=== PATIENT | male | born 1935 | race Caucasian/White ===

== ENCOUNTER 2017-01-03 17:09 | Inpatient (IN) | payer MEDICARE, BC ==
[~2017-01-03] VITALS: Ht 167.6 cm; Wt 70.0 kg
[2017-01-03 17:13] VITALS: BP 94/65; PULSE 92; RESP 20; TEMP 98.4; O2SAT 96
--- NOTE | 2017-01-03 17:29 | PD ---
HPI Chief Complaint: GI Complaint Time Seen by Provider: 17:24 Travel History International Travel<30 days: No Contact w/Intl Traveler<30days: No Traveled to known affect area: No History of Present Illness HPI 81-year-old male with history of heart valve replacement currently on Plavix, hypertension, presents to the ER today because he has been having nausea and vomiting since last night, started vomiting up coffee grounds today, vomited about 5 times this morning. He denies any diarrhea, black stools, fevers, or any other symptoms. He denies any previous history of gastrointestinal bleeding. Modifying Factors: None Associated Signs & Symptoms: Vomiting coffee grounds Risk Factors: Plavix PFSH Past Medical History Hx Anticoagulant Therapy: Yes (plavix) Cardiovascular Problems: Yes Respiratory: Yes Past Surgical History Cardiac Surgery: Yes (CABG X2, VALVE REPLACEMENT) Social History Alcohol Use: No Tobacco Use: No Substance Use: No Allergies-Medications (Allergen,Severity, Reaction): Coded Allergies: aspirin (Verified Adverse Reaction, Unknown, GI UPSET, 01/03/17) Review of Systems Except as stated in HPI: all other systems reviewed are Neg Physical Exam Narrative GENERAL: Well-developed pleasant elderly white male patient currently in moderate distress at awake and oriented 3. SKIN: Focused skin assessment warm/dry. HEAD: Atraumatic. Normocephalic. EYES: Pupils equal and round. No scleral icterus. No injection or drainage. ENT: No nasal bleeding or discharge. Mucous membranes pink and moist. NECK: Trachea midline. No JVD. CARDIOVASCULAR: Regular rate and rhythm. No murmur appreciated. RESPIRATORY: No accessory muscle use. Clear to auscultation. Breath sounds equal bilaterally. GASTROINTESTINAL: Abdomen soft, mild periumbilical tenderness without guarding or rebound, nondistended. Hepatic and splenic margins not palpable. MUSCULOSKELETAL: No obvious deformities. No clubbing. No cyanosis. No edema. NEUROLOGICAL: Awake and alert. No obvious cranial nerve deficits. Motor grossly within normal limits. Normal speech. PSYCHIATRIC: Appropriate mood and affect; insight and judgment normal. Data Data Last Documented VS Vital Signs Date Time Temp Pulse Resp B/P (MAP) Pulse Ox O2 Delivery O2 Flow Rate FiO2 01/03/17 18:02 86 16 116/56 (76) 97 Nasal Cannula 2.00 01/03/17 17:13 98.4 Orders Orders Complete Blood Count With Diff (01/03/17 17:24) Comprehensive Metabolic Panel (01/03/17 17:24) Lipase (01/03/17 17:24) Prothrombin Time / Inr (Pt) (01/03/17 17:24) Act Partial Throm Time (Ptt) (01/03/17 17:24) Type And Screen (01/03/17 17:24) Ecg Monitoring (01/03/17 17:24) Iv Access Insert/Monitor (01/03/17 17:24) Oximetry (01/03/17 17:24) Sodium Chlorid 0.9% 500 Ml Inj (Ns 500 M (01/03/17 17:45) Pantoprazole Inj (Protonix Inj) (01/03/17 17:45) Ondansetron Inj (Zofran Inj) (01/03/17 17:45) Ondansetron Inj (Zofran Inj) (01/03/17 17:34) Abdomen, Flat & Upright (01/03/17 17:53) Ng Gastric Tube Insert/Monitor (01/03/17 17:53) Electrocardiogram (01/03/17 17:36) Labs Laboratory Tests Test 01/03/17 17:30 White Blood Count 10.5 TH/MM3 Red Blood Count 4.50 MIL/MM3 Hemoglobin 13.0 GM/DL Hematocrit 37.9 % Mean Corpuscular Volume 84.2 FL Mean Corpuscular Hemoglobin 28.9 PG Mean Corpuscular Hemoglobin Concent 34.3 % Red Cell Distribution Width 15.4 % Platelet Count 189 TH/MM3 Mean Platelet Volume 8.0 FL Neutrophils (%) (Auto) 46.4 % Lymphocytes (%) (Auto) 31.6 % Monocytes (%) (Auto) 10.1 % Eosinophils (%) (Auto) 11.7 % Basophils (%) (Auto) 0.2 % Neutrophils # (Auto) 4.8 TH/MM3 Lymphocytes # (Auto) 3.3 TH/MM3 Monocytes # (Auto) 1.1 TH/MM3 Eosinophils # (Auto) 1.2 TH/MM3 Basophils # (Auto) 0.0 TH/MM3 CBC Comment DIFF FINAL Differential Comment Prothrombin Time 11.4 SEC Prothromb Time International Ratio 1.0 RATIO Activated Partial Thromboplast Time 28.5 SEC Blood Urea Nitrogen 64 MG/DL Creatinine 1.89 MG/DL Random Glucose 100 MG/DL Total Protein 6.6 GM/DL Albumin 3.6 GM/DL Calcium Level 8.4 MG/DL Alkaline Phosphatase 86 U/L Aspartate Amino Transf (AST/SGOT) 17 U/L Alanine Aminotransferase (ALT/SGPT) 20 U/L Total Bilirubin 1.0 MG/DL Sodium Level 138 MEQ/L Potassium Level 4.1 MEQ/L Chloride Level 100 MEQ/L Carbon Dioxide Level 30.8 MEQ/L Anion Gap 7 MEQ/L Estimat Glomerular Filtration Rate 34 ML/MIN Lipase 160 U/L MDM Medical Decision Making Medical Screen Exam Complete: Yes Emergency Medical Condition: Yes Medical Record Reviewed: Yes Interpretation(s) Laboratory Tests Test 01/03/17 17:30 Hematocrit 37.9 % (39.0-51.0) Monocytes (%) (Auto) 10.1 % (0.0-8.0) Eosinophils (%) (Auto) 11.7 % (0.0-4.0) Monocytes # (Auto) 1.1 TH/MM3 (0-0.9) Eosinophils # (Auto) 1.2 TH/MM3 (0-0.4) Blood Urea Nitrogen 64 MG/DL (7-18) Creatinine 1.89 MG/DL (0.60-1.30) Calcium Level 8.4 MG/DL (8.5-10.1) Estimat Glomerular Filtration Rate 34 ML/MIN (>89) Differential Diagnosis Coffee ground emesis: GI bleed versus gastritis versus evaluation for significant anemia Narrative Course Patient is given Protonix in the ER and Zofran. However, he continued to vomit and NG tube was placed with some improvement symptoms. Lab work shows elevated BUN/creatinine creatinine, likely underlying dehydration. His emesis was evaluated and shows that it is Hemoccult positive. H&H is stable. At this point, my plan would be to admit the patient for further treatment. Case was discussed with family practice resident service for admission. Diagnosis Primary Impression: GI bleed Admitting Information Admitting Physician Requests: Admit Jaylan Miranda MD Jan 03, 2017 17:29
[2017-01-03 17:31] VITALS: O2SAT 96
[2017-01-03] MEDS ORDERED: ONDANSETRON HCL 4 MG/2 ML VIAL ONE (17:34)
[2017-01-03] MEDS ORDERED: SODIUM CHLORID 0.9% 500 ML INJ 500 ML IV ONE ×2 (17:45→19:30)
[2017-01-03] MEDS ORDERED: ONDANSETRON HCL 4 MG/2 ML VIAL IV PUSH ONE (17:45)
[2017-01-03] MEDS ORDERED: PANTOPRAZOLE SODIUM 40 MG VIAL IV PUSH ONE (17:45)
[2017-01-03 17:49] LABS: AUTOMATED NEUTROPHIL # 4.8 TH/MM3 (1.8-7.7); BASOPHIL % 0.2 % (0.0-2.0); EOSINOPHIL # 1.2 TH/MM3 (0-0.4); EOSINOPHIL % 11.7 % (0.0-4.0); HEMATOCRIT 37.9 % (39.0-51.0); HEMO FLAGS DIFF FINAL; LYMPH % 31.6 % (9.0-44.0); LYMPHOCYTE # 3.3 TH/MM3 (1.0-4.8); MEAN CELL VOLUME 84.2 FL (80.0-100.0); MEAN CORPUSCULAR HEMOGLOBIN 28.9 PG (27.0-34.0); MEAN CORPUSCULAR HGB CONC 34.3 % (32.0-36.0); MONO % 10.1 % (0.0-8.0); NEUT % 46.4 % (16.0-70.0); PLATELET COUNT 189 TH/MM3 (150-450); RED CELL DISTRIBUTION WIDTH 15.4 % (11.6-17.2); WHITE BLOOD COUNT 10.5 TH/MM3 (4.0-11.0)
[2017-01-03 18:01] LABS: APTT (PATIENT) 28.5 SEC (24.3-30.1); PROTHROMBIN TIME - PATIENT 11.4 SEC (9.8-11.6)
[2017-01-03 18:02] VITALS: BP 116/56; PULSE 86; RESP 16; O2SAT 97
[2017-01-03 18:04] LABS: ANION GAP 7 MEQ/L (5-15); AST (GOT) 17 U/L (15-37); BICARBONATE 30.8 MEQ/L (21.0-32.0); BLOOD UREA NITROGEN 64 MG/DL (7-18); CHLORIDE 100 MEQ/L (98-107); GLOMERULAR FILTRATION RATE 34 ML/MIN (>89); POTASSIUM 4.1 MEQ/L (3.5-5.1); SODIUM (NA) 138 MEQ/L (136-145)
[2017-01-03 18:05] LABS: ALT (GPT) 20 U/L (12-78)
[2017-01-03 18:07] LABS: ALKALINE PHOSPHATASE 86 U/L (45-117)
[2017-01-03] MEDS ORDERED: METO50TA PO (18:58)
[2017-01-03] MEDS ORDERED: TAMS0.4C4 PO (18:58)
[2017-01-03] MEDS ORDERED: TRIA37.5 PO (18:58)
[2017-01-03] MEDS ORDERED: ALBU0.08 NEB (18:58)
[2017-01-03] MEDS ORDERED: PANT40TA3 PO (18:58)
[2017-01-03] MEDS ORDERED: PROS5TAB PO (18:58)
[2017-01-03] MEDS ORDERED: ALBUAER3 INH (18:58)
[2017-01-03] MEDS ORDERED: CLOP75TA PO (18:58)
[2017-01-03] MEDS ORDERED: ATOR40TA16 PO (18:58)
[2017-01-03] MEDS ORDERED: GARL1000 PO (18:58)
[2017-01-03] MEDS ORDERED: MULT-267 PO (18:58)
[2017-01-03] MEDS ORDERED: SODIUM CHLORIDE 0.9% FLUSH 10 ML FLUSH IV FLUSH PRN (19:00)
--- NOTE | 2017-01-03 19:10 | RADRPT ---
EXAM DATE/TIME: 01/03/2017 18:33 [facility] COMPARISON: No previous studies available for comparison. INDICATIONS : Hematemesis. MEDICAL HISTORY : None. SURGICAL HISTORY : None. ENCOUNTER: Initial ACUITY: 3 days PAIN SCORE: 0/10 LOCATION: Bilateral abdomen. FINDINGS: Moderate stool in the right side of the colon. No small bowel or gastric distention. No evidence of f ree air. There is a nasogastric tube with tip in the distal stomach. There is left base infiltrate. CONCLUSION: 1. Nonobstructive bowel gas pattern. 2. Moderate stool in the right side of the colon. 3. Nasogastric tube tip is in the distal stomach. 4. Consolidation of the visualized left lung base. Derek Carrasco MD on January 03, 2017 at 19:08 Board Certified Radiologist. This report was verified electronically.
[2017-01-03 19:23] VITALS: BP 105/59; PULSE 92; RESP 20; O2SAT 94
[2017-01-03] MEDS: SODIUM CHLOR 0.9% 1000 ML INJ 1,000 ML IV SCH (19:27)
[2017-01-03] MEDS ORDERED: SENNOSIDES 8.6 MG TAB PO PRN (19:45)
[2017-01-03] MEDS ORDERED: NALOXONE HCL 0.4 MG/ML AMP IV PUSH PRN (19:45)
[2017-01-03] MEDS ORDERED: LACTULOSE SYRUP 20 GM/30 ML CUP PO PRN (19:45)
[2017-01-03] MEDS ORDERED: BISACODYL 10 MG SUPP RECTAL PRN (19:45)
[2017-01-03] MEDS ORDERED: MAGNESIUM HYDROXIDE SUSP 30 ML CUP PO PRN (19:45)
[2017-01-03 19:54] VITALS: O2SAT 94
[2017-01-03 20:19] LABS: HEMATOCRIT 31.1 % (39.0-51.0); REVIEW FLAG FINAL
[2017-01-03] MEDS ORDERED: PANTOPRAZOLE SODIUM 40 MG VIAL IV PUSH SCH (21:00)
[2017-01-03] MEDS: SODIUM CHLORIDE 0.9% FLUSH 10 ML FLUSH IV FLUSH SCH (21:00)
[2017-01-03] MEDS ORDERED: SODIUM CHLORID 0.9% 500 ML INJ 500 ML IV STA (21:10)
[2017-01-03] MEDS: PANTOPRAZOLE INJ 80 MG in SODIUM CHLORIDE 0.9% INJ 100 ML IV SCH (21:51)
--- NOTE | 2017-01-03 22:33 | HHI.HP ---
HPI Service Family Medicine Primary Care Physician Unknown Admission Diagnosis GI bleed Diagnoses: International Travel<30 Days: No Contact w/Intl Traveler<30days: No Known Affected Area: No History of Present Illness 81 year old male with past history of HTN, GERD, HLD, COPD who presented to the ED for vomiting blood. Patient states he began vomiting yesterday night. There was no blood in his vomit at that time. Over the past day he has vomited "30-40 times." It became a dark brown/red today. Each vomitus was a "small amount". This has never occurred before. He came into the ED at the behest of his granddaughter, who is a nurse. She described the vomitus as "coffee ground emesis". No recent blood from his nose. No lightheadedness, dizziness, dry mouth , headache, palpitations, nausea, abdominal pain. Notes chronic constipation, last bowel movement Sunday after a laxative, did not examine for color. No recent change in urine frequency, volume, color. Patient states he's had no other recent bleeds. Patient states he had a colonoscopy 8-9 months ago which was normal. (Sekou Magaña MD R1) Review of Systems Constitutional: DENIES: Diaphoretic episodes, Fatigue, Fever, Chills, Dizziness Endocrine: DENIES: Polydipsia, Polyuria Eyes: DENIES: Blurred vision, Diplopia, Eye pain, Vision loss, Double Vision Ears, nose, mouth, throat: DENIES: Tinnitus, Hearing loss, Running Nose, Epistaxis Respiratory: COMPLAINS OF: Hemoptysis, DENIES: Apneas, Cough, Snoring, Wheezing , Sputum production, Shortness of breath Cardiovascular: DENIES: Chest pain, Palpitations, Syncope, Dyspnea on Exertion Gastrointestinal: COMPLAINS OF: Constipation, Vomiting, DENIES: Abdominal pain , Nausea Genitourinary: COMPLAINS OF: Nocturia, DENIES: Dysuria Musculoskeletal: COMPLAINS OF: Joint pain ("normal for my age"), Muscle aches ( "normal for my age"), DENIES: Back pain Integumentary: DENIES: Pruritus, Rash Hematologic/lymphatic: COMPLAINS OF: Bruising, DENIES: Lymphadenopathy Immunologic/allergic: DENIES: Eczema, Urticaria Neurologic: DENIES: Abnormal gait, Headache, Localized weakness, Paresthesias Psychiatric: DENIES: Anxiety, Confusion (Sekou Magaña MD R1) Past Family Social History Past Medical History Hypertension GERD Hyperlipidemia COPD Past Surgical History Two-vessel CABG 1998 2 repaired valves 1998 Right hip replacement 2005 Right inguinal hernia repair "30-40 years ago" Left ankle fracture surgery (Sekou Magaña MD R1) Allergies: Coded Allergies: aspirin (Verified Adverse Reaction, Unknown, GI UPSET, 01/03/17) Family History Mother at 85 possible cancer Father at 78 heart attack Social History Alcohol: Doesn't drink Smoking: Stopped smoking 40 years ago, a pack a day ago for 40 years Drug: None (Sekou Magaña MD R1) Physical Exam Vital Signs Vital Signs Date Time Temp Pulse Resp B/P (MAP) Pulse Ox O2 Delivery O2 Flow Rate FiO2 01/03/17 19:54 94 Nasal Cannula 1.00 01/03/17 19:23 92 20 105/59 (74) 94 Nasal Cannula 2.00 01/03/17 18:02 86 16 116/56 (76) 97 Nasal Cannula 2.00 01/03/17 17:31 96 Nasal Cannula 2.00 01/03/17 17:13 98.4 92 20 94/65 (75) 96 Room Air Physical Exam GENERAL: This is a well-nourished, well-developed patient, in no apparent distress. SKIN: No rashes. Cool and dry. Ecchymoses on arms and legs. Bandaged abrasion on right leg. HEAD: Atraumatic. Normocephalic. No temporal or scalp tenderness. EYES: Pupils equal round and reactive. Extraocular motions intact. No scleral icterus. No injection or drainage. ENT: Nose with NG tube draining dark red fluid. Approximately 250 mL of dark red fluid collected at time of interview. Throat without erythema, tonsillar hypertrophy or exudate. Uvula midline. Airway patent. NECK: Trachea midline. No JVD or lymphadenopathy. Supple, nontender, no meningeal signs. CARDIOVASCULAR: Regular rate and rhythm without murmurs, gallops, or rubs. RESPIRATORY: Bilateral wheezing. Breath sounds equal bilaterally. No rales, or rhonchi. GASTROINTESTINAL: Abdomen soft, non-tender, nondistended. No hepato-splenomegaly , or palpable masses. No guarding. MUSCULOSKELETAL: Extremities without clubbing, cyanosis, or edema. No joint tenderness, effusion, or edema noted. No calf tenderness. NEUROLOGICAL: Awake and alert. Cranial nerves II through XII intact. Motor and sensory grossly within normal limits. Five out of 5 muscle strength in all muscle groups. Normal speech. Laboratory Laboratory Tests Test 01/03/17 17:30 01/03/17 19:50 White Blood Count 10.5 Red Blood Count 4.50 Hemoglobin 13.0 10.3 Hematocrit 37.9 31.1 Mean Corpuscular Volume 84.2 Mean Corpuscular Hemoglobin 28.9 Mean Corpuscular Hemoglobin Concent 34.3 Red Cell Distribution Width 15.4 Platelet Count 189 Mean Platelet Volume 8.0 Neutrophils (%) (Auto) 46.4 Lymphocytes (%) (Auto) 31.6 Monocytes (%) (Auto) 10.1 Eosinophils (%) (Auto) 11.7 Basophils (%) (Auto) 0.2 Neutrophils # (Auto) 4.8 Lymphocytes # (Auto) 3.3 Monocytes # (Auto) 1.1 Eosinophils # (Auto) 1.2 Basophils # (Auto) 0.0 CBC Comment DIFF FINAL Differential Comment Prothrombin Time 11.4 Prothromb Time International Ratio 1.0 Activated Partial Thromboplast Time 28.5 Blood Urea Nitrogen 64 Creatinine 1.89 Random Glucose 100 Total Protein 6.6 Albumin 3.6 Calcium Level 8.4 Alkaline Phosphatase 86 Aspartate Amino Transf (AST/SGOT) 17 Alanine Aminotransferase (ALT/SGPT) 20 Total Bilirubin 1.0 Sodium Level 138 Potassium Level 4.1 Chloride Level 100 Carbon Dioxide Level 30.8 Anion Gap 7 Estimat Glomerular Filtration Rate 34 Lipase 160 (Skeou Magaña MD R1) Result Diagram: 01/03/17194901/03/17 2701 Caprini VTE Risk Assessment Caprini VTE Risk Assessment: Mod/High Risk (score >= 2) VTE Pharm Contraindication: Active bleeding Caprini Risk Assessment Model Point Value = 1 Point Value = 2 Point Value = 3 Point Value = 5 Age 41-60 Minor surgery BMI > 25 kg/m2 Swollen legs Varicose veins or History of unexplained or recurrent spontaneous Oral contraceptives or hormone replacement Sepsis (< 1 month) Serious lung disease, including pneumonia (< 1 month) Abnormal pulmonary function Acute myocardial infarction Congestive heart failure (< 1 month) History of inflammatory bowel disease Medical patient at bed rest Age 61-74 Arthroscopic surgery Major open surgery (> 45 min) Laparoscopic surgery (> 45 min) Malignancy Confined to bed (> 72 hours) Immobilizing plaster cast Central venous access Age >= 75 History of VTE Family history of VTE Factor V Leiden Prothrombin [id number] Lupus anticoagulant Anticardiolipin antibodies Elevated serum homocysteine Heparin-induced thrombocytopenia Other congenital or acquired thrombophilia Stroke (< 1 month) Elective arthroplasty Hip, pelvis, or leg fracture Acute spinal cord injury (< 1 month) Prophylaxis Regimen Total Risk Factor Score Risk Level Prophylaxis Regimen 0-1 Low Early ambulation 2 Moderate Order ONE of the following: *Sequential Compression Device (SCD) *Heparin 5000 units SQ BID 3-4 Higher Order ONE of the following medications: *Heparin 5000 units SQ TID *Enoxaparin/Lovenox 40 mg SQ daily (WT < 150 kg, CrCl > 30 mL/min) *Enoxaparin/Lovenox 30 mg SQ daily (WT < 150 kg, CrCl > 10-29 mL/min) *Enoxaparin/Lovenox 30 mg SQ BID (WT < 150 kg, CrCl > 30 mL/min) AND/OR *Sequential Compression Device (SCD) 5 or more Highest Order ONE of the following medications: *Heparin 5000 units SQ TID (Preferred with Epidurals) *Enoxaparin/Lovenox 40 mg SQ daily (WT < 150 kg, CrCl > 30 mL/min) *Enoxaparin/Lovenox 30 mg SQ daily (WT < 150 kg, CrCl > 10-29 mL/min) *Enoxaparin/Lovenox 30 mg SQ BID (WT < 150 kg, CrCl > 30 mL/min) AND *Sequential Compression Device (SCD) (Sekou Magaña MD R1) Assessment and Plan Assessment and Plan 81-year-old male with past history of hypertension, hyperlipidemia, GERD who has an active upper GI bleed on nasogastric suction. Asymptomatic. Hemoglobin 13.0 on admission, 10.3 two hours and 20 minutes later. Negative rectal Hemoccult performed at admission. (Sekou Magaña MD R1) Attending Attestation The patient has been seen and examined. The chart and all resident notes have been reviewed. I agree that inpatient care is appropriate and that a two midnight stay is expected for the reasons documented in the resident history and physical. I have discussed this with the resident and certify the resident s order for inpatient admission. (Myriam Martinez MD) Problem List: (1) GI bleed ICD Codes: K92.2 - Gastrointestinal hemorrhage, unspecified Status: Acute Plan: Current active GI bleed with coffee-ground fluid on nasogastric suction. Currently asymptomatic. Hemoglobin 13.0 in ED. negative Hemoccult performed at admission. * Repeat hemoglobin 10.3 approximate 2 hours after first * F/U H/H every 4 hours * Monitor vital signs * Monitor for signs and symptoms of anemia * Admit to [facility] * 500 mL fluid bolus 2 given * GI consulted, will perform endoscopy in the morning * Protonix drip * We'll transfuse as needed (2) Hypertension ICD Codes: I10 - Essential (primary) hypertension Plan: History of hypertension * Continue home metoprolol 50 mg daily when able to tolerate by mouth * Monitor vital signs * Currently normal to hypotensive (3) Hyperlipidemia ICD Codes: E78.5 - Hyperlipidemia, unspecified Plan: History of hyperlipidemia * Resume home atorvastatin 40 mg daily when able to tolerate by mouth (4) COPD (chronic obstructive pulmonary disease) ICD Codes: J44.9 - Chronic obstructive pulmonary disease, unspecified Plan: History of COPD * DuoNeb's when necessary (5) FEN Plan: Fluids * Received two 500 mL boluses * Maintenance fluids Electrolytes * Monitor and correct as needed Nutrition * Nothing by mouth DVT prophylaxis Currently contraindicated due to active bleeding and easy bruising (Sekou Magaña MD R1) Physician Certification 2 Midnight Certification Type: Admission for Inpatient Services Order for Inpatient Services The services are ordered in accordance with Medicare regulations or non- Medicare payer requirements, as applicable. In the case of services not specified as inpatient-only, they are appropriately provided as inpatient services in accordance with the 2-midnight benchmark. Estimated LOS (days): 2 2 days is the estimated time the patient will need to remain in the hospital, assuming treatment plan goals are met and no additional complications. Post-Hospital Plan: Home (Sekou Magaña MD R1) Sekou Magaña MD R1 Jan 03, 2017 22:33 Myriam Martinez MD Jan 04, 2017 13:58
[2017-01-03] MEDS: DOCUSATE SODIUM 50 MG/SENNA 8.6 MG TAB PO SCH (23:00)
[2017-01-03 23:50] VITALS: BP 98/56; PULSE 87; RESP 21; O2SAT 97
[2017-01-04] VITALS (11 sets, daily range): BP systolic 111–124; BP diastolic 56–60; PULSE 75–90; RESP 18–23; TEMP 97.7–99.7; O2SAT 94–100
[2017-01-04] MEDS ORDERED: CHLORHEXIDINE GLUCONATE 2 % 1 PACK (2 CLOTHS)(extra cloths) TOPICAL PRN (01:15)
[2017-01-04 01:50] LABS: AUTOMATED NEUTROPHIL # 3.7 TH/MM3 (1.8-7.7); BASOPHIL % 0.1 % (0.0-2.0); EOSINOPHIL # 0.6 TH/MM3 (0-0.4); EOSINOPHIL % 8.3 % (0.0-4.0); HEMATOCRIT 28.2 % (39.0-51.0); HEMO FLAGS DIFF FINAL; LYMPH % 33.2 % (9.0-44.0); LYMPHOCYTE # 2.5 TH/MM3 (1.0-4.8); MEAN CELL VOLUME 85.5 FL (80.0-100.0); MEAN CORPUSCULAR HEMOGLOBIN 28.8 PG (27.0-34.0); MEAN CORPUSCULAR HGB CONC 33.7 % (32.0-36.0); NEUT % 49.4 % (16.0-70.0); PLATELET COUNT 146 TH/MM3 (150-450); RED CELL DISTRIBUTION WIDTH 15.2 % (11.6-17.2); WHITE BLOOD COUNT 7.5 TH/MM3 (4.0-11.0)
[2017-01-04 02:13] LABS: BICARBONATE 26.7 MEQ/L (21.0-32.0); CALCIUM-PROTEIN CORRECTED 8.1 MG/DL (8.5-10.1); POTASSIUM 3.8 MEQ/L (3.5-5.1); TOTAL BILIRUBIN ADULT 0.4 MG/DL (0.2-1.0)
[2017-01-04] MEDS: CHLORHEXIDINE GLUCONATE 2 % 1 PACK (2 CLOTHS)(taper/protocol) TOPICAL SCH ×2 (04:00→21:00)
[2017-01-04] MEDS: SODIUM CHLOR 0.9% 1000 ML INJ 1,000 ML IV SCH ×2 (04:44→21:00)
[2017-01-04 05:41] LABS: HEMATOCRIT 27.3 % (39.0-51.0); REVIEW FLAG FINAL
--- NOTE | 2017-01-04 06:07 | RADRPT ---
EXAM DATE/TIME: 01/04/2017 05:15 [facility] COMPARISON: No previous studies available for comparison. INDICATIONS : Cough. MEDICAL HISTORY : None. SURGICAL HISTORY : None. ENCOUNTER: Initial ACUITY: 2 days PAIN SCORE: 0/10 LOCATION: Bilateral chest FINDINGS: A single view of the chest demonstrates nasogastric tube tip in proximal stomach. Previous median andrew rnotomy. Postop mitral valve surgery. Minimal basilar scarring. No focal consolidation or significant effusion. No pneumothorax. CONCLUSION: 1. Minimal basilar scarring or atelectasis. Tortuous aorta. Nasogastric tube tip in stomach with side -port in distal esophagus. Adam Roach MD on January 04, 2017 at 6:03 Board Certified Radiologist. This report was verified electronically.
[2017-01-04] MEDS: PANTOPRAZOLE INJ 80 MG in SODIUM CHLORIDE 0.9% INJ 100 ML IV SCH ×2 (06:38→15:40)
--- NOTE | 2017-01-04 07:50 | EKG ---
Date Performed: 01/03/2017 Time Performed: 17:36:05 PTAGE: 81 years EKG: Sinus rhythm MODERATE INTRAVENTRICULAR CONDUCTION DELAY BORDERLINE ECG NO PREVIOUS TRACING DOCTOR: Jessica Martin Interpretating Date/Time 01/04/2017 07:48:42
--- NOTE | 2017-01-04 08:58 | PD.CONS ---
HPI History of Present Illness This is a 81 year old male who presented to the emergency room for evaluation of hematemesis. He reports that he started having "forceful" nausea/vomiting Sunday night. This consisted of undigested food and later bilious material, but no hematemesis. He went to bed and when he woke up, he started having the nausea and vomiting again- but this time consisting of dark black/dark maroon type emesis. He reports that he had multiple episodes of coffee ground emesis. He did not think much of this, but states his granddaughter, who is a nurse took one look at it and told him he had to go to the ER. He does have a long history of GERD and has a hiatal hernia. He reports that his symptoms are controlled with Prilosec, but if he did not take his prilosec, he would have daily symptoms. He denies any abdominal pain. He has chronic constipation and takes an unknown [id number] laxative at home as needed for this. She cannot tell me if he's had any melanotic or red blood in his stools, but states he does not examine his stools when he goes to the bathroom. He denies any history of peptic ulcer disease, liver disease, or alcohol abuse. He reports that he had an EGD and a colonoscopy less than a year ago, but cannot tell me the name of the doctor who performed this. I did look in our office records and he has not been seen by our service. He is on Plavix and last took this yesterday morning. He also reports that he's been taking Aleve for arthritic pain. (Tara Campbell) [facility] Past Medical History Hiatal hernia. GERD Hypertension Hyperlipidemia COPD Coronary artery disease Valvular heart disease Past Surgical History CABG 2, valve replacement Left ankle ORIF Right hip replacement Right inguinal hernia repair EGD/colonoscopy (Tara Campbell) Coded Allergies: aspirin (Verified Adverse Reaction, Unknown, GI UPSET, 01/03/17) Medications Allergies Coded Allergies Type Severity Reaction Last Updated Verified aspirin Adverse Reaction Unknown GI UPSET 01/03/17 Yes Active Scripts Medications Dose Route/Sig Max Daily Dose Days Date Category Dose Instructions Albuterol Neb (Albuterol Sulfate) 2.5 Mg/3 Ml Neb 2.5 Mg NEB Q4HR NEB PRN 01/03/17 Reported Pantoprazole (Pantoprazole Sodium) 40 Mg Tab 40 Mg PO DAILY 01/03/17 Reported Garlic Oil 1000 (Garlic) 1,000 Mg Cap 1 Cap PO DAILY 01/03/17 Reported Men's Multi-Vitamin (Multivitamin) 1 Each Tablet 1 Tab PO DAILY 01/03/17 Reported Metoprolol Tartrate 50 Mg Tab 50 Mg PO DAILY 01/03/17 Reported Triamterene-Hydrochlorothiazide 37.5-25 Mg Tab 1 Tab PO DAILY 01/03/17 Reported Clopidogrel (Clopidogrel Bisulfate) 75 Mg Tab 75 Mg PO DAILY 01/03/17 Reported Proair Hfa 8.5 GM Inh (Albuterol Sulfate) 90 Mcg/Act Aer 2 Puff INH Q4-6H PRN 01/03/17 Reported 108 mcg/actuation Atorvastatin (Atorvastatin Calcium) 40 Mg Tab 40 Mg PO HS 01/03/17 Reported Family History Mother from an unknown type of cancer Father from an [place] Social History He has a 44-lwnp-exha smoking history, stopped 40 years ago No alcohol abuse No illicit drug use (Tara Campbell) Review of Systems Constitutional: COMPLAINS OF: Fatigue, Weight loss (a few pounds), DENIES: Fever, Chills Respiratory: DENIES: Cough, Shortness of breath Cardiovascular: DENIES: Chest pain Gastrointestinal: COMPLAINS OF: Constipation, Nausea, Vomiting, Heartburn, Hematemesis, DENIES: Abdominal pain, Black stools, Bloody stools, Diarrhea Musculoskeletal: COMPLAINS OF: Joint pain Hematologic/lymphatic: COMPLAINS OF: Bruising Neurologic: DENIES: Headache Psychiatric: DENIES: Confusion (Tara Campbell) GI Exam Vitals I&O Vital Signs Date Time Temp Pulse Resp B/P (MAP) Pulse Ox O2 Delivery O2 Flow Rate FiO2 01/04/17 06:00 75 01/04/17 04:00 79 01/04/17 01:05 01/03/17 23:50 87 21 98/56 (70) 97 Nasal Cannula 2.00 01/03/17 19:54 94 Nasal Cannula 1.00 01/03/17 19:23 92 20 105/59 (74) 94 Nasal Cannula 2.00 01/03/17 18:02 86 16 116/56 (76) 97 Nasal Cannula 2.00 01/03/17 17:31 96 Nasal Cannula 2.00 01/03/17 17:13 98.4 92 20 94/65 (75) 96 Room Air I/O 01/03/17 01/03/17 01/03/17 01/04/17 01/04/17 01/04/17 07:00 15:00 23:00 07:00 15:00 23:00 Intake Total 500 ml 0 ml Output Total 800 ml 750 ml Balance -300 ml -750 ml Intake Oral 0 ml IV Total 500 ml Output Urine Total 750 ml Emesis 800 ml # Bowel Movements 0 Imaging Last Impressions Chest X-Ray 01/04/17 0600 Signed Impressions: Service Date/Time: December 05:15 - CONCLUSION: 1. Minimal basilar scarring or atelectasis. Tortuous aorta. Nasogastric tube tip in stomach with side-port in distal esophagus. Adam Roach MD Abdomen X-Ray 01/03/17 1753 Signed Impressions: Service Date/Time: Tuesday, January 03, 2017 18:33 - CONCLUSION: 1. Nonobstructive bowel gas pattern. 2. Moderate stool in the right side of the colon. 3. Nasogastric tube tip is in the distal stomach. 4. Consolidation of the visualized left lung base. Derek Carrasco MD Laboratory Test 01/03/17 17:30 01/03/17 19:50 01/04/17 01:00 01/04/17 01:27 White Blood Count 10.5 TH/MM3 7.5 TH/MM3 Red Blood Count 4.50 MIL/MM3 3.30 MIL/MM3 Hemoglobin 13.0 GM/DL 10.3 GM/DL 9.5 GM/DL Hematocrit 37.9 % 31.1 % 28.2 % Mean Corpuscular Volume 84.2 FL 85.5 FL Mean Corpuscular Hemoglobin 28.9 PG 28.8 PG Mean Corpuscular Hemoglobin Concent 34.3 % 33.7 % Red Cell Distribution Width 15.4 % 15.2 % Platelet Count 189 TH/MM3 146 TH/MM3 Mean Platelet Volume 8.0 FL 8.0 FL Neutrophils (%) (Auto) 46.4 % 49.4 % Lymphocytes (%) (Auto) 31.6 % 33.2 % Monocytes (%) (Auto) 10.1 % 9.0 % Eosinophils (%) (Auto) 11.7 % 8.3 % Basophils (%) (Auto) 0.2 % 0.1 % Neutrophils # (Auto) 4.8 TH/MM3 3.7 TH/MM3 Lymphocytes # (Auto) 3.3 TH/MM3 2.5 TH/MM3 Monocytes # (Auto) 1.1 TH/MM3 0.7 TH/MM3 Eosinophils # (Auto) 1.2 TH/MM3 0.6 TH/MM3 Basophils # (Auto) 0.0 TH/MM3 0.0 TH/MM3 CBC Comment DIFF FINAL DIFF FINAL Differential Comment Prothrombin Time 11.4 SEC Prothromb Time International Ratio 1.0 RATIO Activated Partial Thromboplast Time 28.5 SEC Blood Urea Nitrogen 64 MG/DL 67 MG/DL Creatinine 1.89 MG/DL 1.48 MG/DL Random Glucose 100 MG/DL 91 MG/DL Total Protein 6.6 GM/DL 4.8 GM/DL Albumin 3.6 GM/DL 2.6 GM/DL Calcium Level 8.4 MG/DL 6.9 MG/DL Alkaline Phosphatase 86 U/L 57 U/L Aspartate Amino Transf (AST/SGOT) 17 U/L 13 U/L Alanine Aminotransferase (ALT/SGPT) 20 U/L 10 U/L Total Bilirubin 1.0 MG/DL 0.4 MG/DL Sodium Level 138 MEQ/L 142 MEQ/L Potassium Level 4.1 MEQ/L 3.8 MEQ/L Chloride Level 100 MEQ/L 110 MEQ/L Carbon Dioxide Level 30.8 MEQ/L 26.7 MEQ/L Anion Gap 7 MEQ/L 5 MEQ/L Estimat Glomerular Filtration Rate 34 ML/MIN 46 ML/MIN Lipase 160 U/L Nasal Screen MRSA (PCR) MRSA NOT DETECTED Magnesium Level 2.0 MG/DL Protein Corrected Calcium 8.1 MG/DL Test 01/04/17 05:06 Hemoglobin 9.0 GM/DL Hematocrit 27.3 % Physical Examination HEENT: Normocephalic; atraumatic; no jaundice. CHEST: CTA, diminished bases CARDIAC: RRR ABDOMEN: Soft, nondistended, nontender; no hepatosplenomegaly; bowel sounds are present in all four quadrants. EXTREMITIES: No clubbing, cyanosis, or edema. SKIN: Multiple ecchymotic areas SAND TECHNICIAN: No focal deficits; alert and oriented times three. (Tara Campbell) Assessment and Plan Plan ASSESSMENT: - Upper GIB with coffee ground/dark maroon emesis. (+) Plavix, (+) Aleve, (+) GERD. No hx of PUD, liver disease. Last egd/colonoscopy < 1 year ago- does not recall the physician's name. 1 day hx of persistent n/v with dark black and maroon emesis. No abdominal pain. Does not know the color of his stools. HH 13/37.9--> 10.3/31.1.--> 9.5/28.2---> 9.0/27.3. Protonix Gtt. NPO. - Anemia, acute blood loss. Type and screen. HH trending down. 9.0/27.3. - GERD, HH. Prilosec at home. Protonix gtt here in hospital - [facility]. Creat 1.48. - CAD, COPD, HTN, Hyperlipidemia per attending. On plavix at home. Currently on hold PLAN: - Plan for egd today - Obtain consents - NPO - Protonix Gtt - Monitor HH - Transfuse as necessary - Supportive care - Further recommendations to follow based on results of above - Pt seen and examined by Dr. Alcazar and myself and this note is written on his behalf (Tara Campbell) Plan Patient was seen and examined, agree with above-noted, patient has active bleed now we will plan on an emergent upper endoscopy, continue monitoring his hemoglobin. And give him packed RBC as needed next continue PPI (Gypsy Alcazar MD) Tara Campbell Jan 04, 2017 08:58 Gypsy Alcazar MD Jan 04, 2017 15:39
[2017-01-04] MEDS: SODIUM CHLORIDE 0.9% FLUSH 10 ML FLUSH IV FLUSH SCH ×2 (09:00→21:00)
[2017-01-04] MEDS: DOCUSATE SODIUM 50 MG/SENNA 8.6 MG TAB PO SCH ×2 (09:00→21:00)
[2017-01-04] MEDS ORDERED: SODIUM CHLOR 0.9% 250 ML INJ 250 ML IV ONE (12:00)
[2017-01-04] MEDS ORDERED: PROPOFOL 200 MG/20 ML AMP IV ONE (12:00)
[2017-01-04] MEDS ORDERED: ONDANSETRON HCL 4 MG/2 ML VIAL IV PUSH PRN (12:00)
[2017-01-04] MEDS ORDERED: LIDOCAINE HCL 1% PF 5 ML AMPULE OTHER ONE (12:00)
[2017-01-04] MEDS ORDERED: ALBUTEROL SULFATE 90 MCG/ACT HFA 8 GM INHALER INH PRN (12:00)
[2017-01-04] MEDS ORDERED: diphenhydrAMINE HCL 25 MG CAP PO PRN (12:00)
[2017-01-04] MEDS ORDERED: PHENYLEPH/NS 1000 MCG/10 ML SYR IV ONE (12:00)
[2017-01-04] MEDS ORDERED: DO NOT ADM ANY ANTICOAGULANT DRUGS PRN (13:25)
[2017-01-04] MEDS ORDERED: *ONDANSETRON 4 MG VIAL PERIprocedural Use ONLY ONE (13:29)
[2017-01-04] MEDS ORDERED: EPINEPHrine HCL (1:10,000) 1 MG/10 ML SYRINGE OTHER ONE (13:37)
[2017-01-04] MEDS ORDERED: *morphine SULFATE 8 MG/ML PERIprocedure ONLY ONE (13:45)
[2017-01-04] MEDS ORDERED: *PROMETHAZINE 25 MG/ML VIAL PERIprocedural use ONLY ONE (13:50)
[2017-01-04] MEDS: RESP: ALBUTEROL 2.5 MG/IPRATROPIUM 0.5 MG NEB (PRN) NEB ×3 (14:11→21:47)
--- NOTE | 2017-01-04 14:12 | HHI.FPPN ---
Subjective Subjective Patient seen and examined with the resident team. Case reviewed and discussed Please refer to resident H&P for further details regarding HPI, ROS, PMH, SurgHx , FH and SocHx In summary, patient is an 81yoM with a history of CAD on plavix, OA on aleve, presenting with intractable emesis and hematemesis. Patient initially presented with significant vomiting in the ED, NGT placed to suction with blood drained from the stomach. Hgb trended overnight and has dropped significantly. [place] [facility] [place] to potential for quick decompensation. [place] [facility] [place] family at his bedside. He denies any abdominal pain, chest pain. He is somewhat short of breath due to his COPD. He uses continuous supplemental oxygen at home. Lost about 100cc blood overnight through NGT, per nursing staff. [facility] Objective Objective Last Impressions Chest X-Ray 01/04/17 0600 Signed Impressions: Service Date/Time: December 05:15 - CONCLUSION: 1. Minimal basilar scarring or atelectasis. Tortuous aorta. Nasogastric tube tip in stomach with side-port in distal esophagus. Adam Roach MD Abdomen X-Ray 01/03/17 1753 Signed Impressions: Service Date/Time: Tuesday, January 03, 2017 18:33 - CONCLUSION: 1. Nonobstructive bowel gas pattern. 2. Moderate stool in the right side of the colon. 3. Nasogastric tube tip is in the distal stomach. 4. Consolidation of the visualized left lung base. Derek Carrasco MD Laboratory Tests - Abnormals Test 01/03/17 17:30 01/03/17 19:50 01/04/17 01:00 01/04/17 01:27 Hematocrit 37.9 % 31.1 % 28.2 % Monocytes (%) (Auto) 10.1 % 9.0 % Eosinophils (%) (Auto) 11.7 % 8.3 % Monocytes # (Auto) 1.1 TH/MM3 Eosinophils # (Auto) 1.2 TH/MM3 0.6 TH/MM3 Blood Urea Nitrogen 64 MG/DL 67 MG/DL Creatinine 1.89 MG/DL 1.48 MG/DL Calcium Level 8.4 MG/DL 6.9 MG/DL Estimat Glomerular Filtration Rate 34 ML/MIN 46 ML/MIN Hemoglobin 10.3 GM/DL 9.5 GM/DL Red Blood Count 3.30 MIL/MM3 Platelet Count 146 TH/MM3 Total Protein 4.8 GM/DL Albumin 2.6 GM/DL Aspartate Amino Transf (AST/SGOT) 13 U/L Alanine Aminotransferase (ALT/SGPT) 10 U/L Chloride Level 110 MEQ/L Protein Corrected Calcium 8.1 MG/DL Test 01/04/17 05:06 Hemoglobin 9.0 GM/DL Hematocrit 27.3 % Vital Signs 01/03/17 01/03/17 01/03/17 01/03/17 17:13 17:31 18:02 19:23 Temp 98.4 Pulse 92 86 92 Resp 20 16 20 B/P (MAP) 94/65 (75) 116/56 (76) 105/59 (74) Pulse Ox 96 96 97 94 O2 Delivery Room Air Nasal Cannula Nasal Cannula Nasal Cannula O2 Flow Rate 2.00 2.00 2.00 01/03/17 01/03/17 01/04/17 01/04/17 19:54 23:50 01:05 04:00 Pulse 87 79 Resp 21 B/P (MAP) 98/56 (70) Pulse Ox 94 97 O2 Delivery Nasal Cannula Nasal Cannula O2 Flow Rate 1.00 2.00 01/04/17 01/04/17 01/04/17 01/04/17 06:00 08:00 08:00 08:15 Temp 99.7 Pulse 75 84 84 Resp 18 B/P (MAP) 124/58 (80) Pulse Ox 95 100 O2 Delivery Nasal Cannula O2 Flow Rate 2.00 01/04/17 10:00 Pulse 86 INTAKE & OUTPUT 01/05/17 07:00 Intake Total 900 ml Balance 900 ml Physical exam GENERAL: wdwn male, NAD, sitting up in bed SKIN: Warm and dry. Mild pallor HEAD: Normocephalic. AT EYES: No scleral icterus. No injection or drainage. Mild conjunctival pallor. ENT: OP clear. Upper dentures. NGT to suction NECK: Supple, trachea midline. No JVD or lymphadenopathy. CARDIOVASCULAR: Regular rate and rhythm without murmurs, gallops, or rubs. RESPIRATORY: Breath sounds with insp and exp wheezing. No accessory muscle use. NC in place. GASTROINTESTINAL: Abdomen soft, non-tender, nondistended. Hypoactive BS. No rebound. MUSCULOSKELETAL: No cyanosis, or edema. No calf tenderness. SCDs in place. BACK: Nontender without obvious deformity. No CVA tenderness. NEURO: Awake and alert. Normal speech. CN grossly intact. Assessment Assessment 81yoM admitted with: Upper GIB Hematemesis Acute blood loss anemia CAD on plavix Valvular heart disease s/p replacement COPD on continuous home O2 Hiatal hernia GERD Hypertension Hyperlipidemia Acute on chronic kidney disease PLAN PLAN Protonix gtt NGT to suction Serial hgb Transfuse as needed IVF resuscitation GI consultation Hold anti-platelets with active bleeding Supplemental oxygen Duonebs Resume home meds as appropriate Patient seen and examined. Case reviewed and discussed Agree with plan of care as discussed with me and documented in the resident note. Myriam Martinez MD Jan 04, 2017 14:12
--- NOTE | 2017-01-04 14:27 | PD.PROCEDR ---
GI Procedure PROCEDURE PERFORMED EGD with bleeding control by injection and cautery of Dulce Maria-Perez tears INDICATION FOR PROCEDURE Upper GI bleed PROCEDURE: The procedure, risks and benefits were discussed with Mr. Singh and informed consent was obtained. Anesthesia sedated him with Diprivan. He was placed in the left lateral decubitus position. EGD: The Pentax videoscope was introduced through the oropharynx and advanced to the second portion of the duodenum under direct visualization. Retroflexion was performed in the stomach patient had active bleeding from the EG junction from a large tear most likely Dulce Maria-Perez tear this was injected with 5 cc of 1/10, 000 epinephrine and cauterized with gold probe bleeding was controlled by this methodology. FINDINGS: Dulce Maria-Perez tears, actively bleeding, control as above Esophagitis ESTIMATED BLOOD LOSS: 20 cc SPECIMENS REMOVED: None COMPLICATIONS: None IMPRESSION: Active bleeding from Dulce Maria-Perez tear PLAN: Keep nothing by mouth Check H&H with packed RBC as needed EGD in few weeks Gypsy Alcaazr MD Jan 04, 2017 14:27
[2017-01-04 16:08] LABS: REVIEW FLAG FINAL
[2017-01-04 18:03] LABS: BLOOD GAS BASE EXCESS -3.1 mmol/L (-2-2); BLOOD GAS CARBOXYHEMOGLOBIN 1.7 % (0-4); BLOOD GAS HCO3 22 mmol/L (22-26); BLOOD GAS METHEMOGLOBIN 1.5 % (0-2); BLOOD GAS O2 HGB SATURATION 94 % (90-100); BLOOD GAS OXYGEN CONTENT 10.3 Vol % (12.0-20.0); BLOOD GAS PCO2 40 mmHg (38-42); BLOOD GAS PO2 95 mmHg (61-120); BLOOD GAS TOTAL HGB 7.7 G/DL (12.0-16.0); CRITICAL VALUE NO; DRAW SITE LT RADIAL; LITER FLOW 3 L/M; NUMBER OF ARTERIAL PUNCTURES 1; OXYGEN DEVICE NASAL CANNULA; STAT YES; TEMP CORR TO 98.6; ULNAR PULSE PRESENT
--- NOTE | 2017-01-04 18:43 | RADRPT ---
EXAM DATE/TIME: 01/04/2017 18:18 [facility] COMPARISON: No previous studies available for comparison. INDICATIONS : Altered mental status. RADIATION DOSE: 56.35 CTDIvol (mGy) MEDICAL HISTORY : Hypertension. SURGICAL HISTORY : None. ENCOUNTER: Initial ACUITY: 1 day PAIN SCALE: 0/10 LOCATION: cranial TECHNIQUE: Multiple contiguous axial images were obtained of the head. Using automated exposure control and adj ustment of the mA and/or kV according to patient size, radiation dose was kept as low as reasonably a chievable to obtain optimal diagnostic quality images. DICOM format image data is available electro nically for review and comparison. FINDINGS: CEREBRUM: The ventricles are normal for age. No evidence of midline shift, mass lesion, hemorrhage or acute in farction. No extra-axial fluid collections are seen. There is atrophy. Chronic appearing low attenua tion seen in the periventricular white matter. POSTERIOR FOSSA: The cerebellum and brainstem are intact. The 4th ventricle is midline. The cerebellopontine angle i s unremarkable. EXTRACRANIAL: The visualized portion of the orbits is intact. SKULL: The calvaria is intact. No evidence of skull fracture. CONCLUSION: No acute intracranial abnormality demonstrated. Atrophy and chronic white matter changes. Derek Carrasco MD on January 04, 2017 at 18:41 Board Certified Radiologist. This report was verified electronically.
--- NOTE | 2017-01-04 18:48 | RADRPT ---
EXAM DATE/TIME: 01/04/2017 18:33 [facility] COMPARISON: CHEST SINGLE AP, January 04, 2017, 5:15. INDICATIONS : Cough. MEDICAL HISTORY : None. SURGICAL HISTORY : None. ENCOUNTER: Subsequent ACUITY: 2 days PAIN SCORE: Non-responsive. LOCATION: Bilateral chest FINDINGS: Emphysema and mild chronic scarring. No dense or confluent consolidation seen. No pleural effusion. N o pneumothorax. Heart size stable, within normal limits. Patient has had previous median sternotomy and valve replace ment. There is a nasogastric tube with tip now in the distal stomach. CONCLUSION: No acute process demonstrated. Derek Carrasco MD on January 04, 2017 at 18:45 Board Certified Radiologist. This report was verified electronically.
--- NOTE | 2017-01-04 19:04 | HHI.PR ---
Addendum to Inpatient Note Addendum Reason: Additional Documentation Additional Information S: Medical team paged at approximately 1715 for possible mental status change. Per nursing report, patient returned to floor at approximately 1415 after EGD. Repeat H/H improved to 9.3/29 at approximately 1515, however patient was not able to converse as he was prior to the procedure. Nursing reports that the only medication given on the floor was Phenergan. Upon arriving patient's daughter and granddaughter are at the bedside and received an up date by the medical team with all questions answered. Patient was lying in bed sleeping upon arrival. O: GENERAL: Elderly gentleman lying in bed in respiratory distress and unresponsive to communication. SKIN: Warm and dry. Mild pallor. HEENT: Atraumatic, normocephalic with EOMI. NG tube in place. Unable to examine OP due to patient noncompliance. 3L NC in place. No LAD, JVD, thyroid abnormality, or subcutaneous emphysema appreciated. CARDIOVASCULAR: Regular rate and rhythm without murmurs, gallops, or rubs. RESPIRATORY: BL extensive wheezing anteriorly without significant C/R. Increase in WOB as patient is using accessory muscles breathing in the upper 30s. GASTROINTESTINAL: Abdomen soft with +BS. Tender to moderate palpation of the upper 2 quadrants with L>R. No rebound tenderness of fluid wave appreciated. MUSCULOSKELETAL: No cyanosis, or edema. No calf tenderness. SCDs in place. NEURO: AAO x0. Patient only responsive to sternal rub and loud yelling. Complete neurological examination unable to be completed as patient does not communicate with team and is not able to follow instructions. A: Mr. Singh is a 81 y/o M admitted for upper GI bleed s/p EGD showing Dulce Maria Perez tear presenting with AMS. P: 1. AMS with elevated RR -Stat CT head ordered as patient has been of Plavix and prophylactic anticoagulation -Baseline ABG ordered -Stat H/H, CMP, Mg, Phos, Ammonia laboratories ordered -Repeat CXR ordered for possible aspiration/perforation s/p EGD 2. Dulce Maria Perez Tear -Repeat H/H pending, will transfuse below 8 as patient has Hx of CABG -Continue NPO -Continue Protonix -Continue IVF -DC Phenergan 3. COPD with elevated RR -Repeat CXR ordered -ABG ordered -Start methyprednisolone 60mg Q6H -Patient given breathing treatment at bedside, continue Duonebs SDW: Dr. Magaña Update: Head CT and CXR both show no acute process. Per nursing staff, upon arriving back to the floor from CT/CXR patient is beginning to improve and has started to converse with his family. His breathing rate has also decrease to upper 20s. Laboratory evaluations: H/H 8.2/25.4 (repeat H/H every 4 hours, plan to transfuse with hemoglobin less than 8), ammonia 43, otherwise within normal limits Medical team will plan to monitor patient and H/H as his medical status has improved. Further orders to follow. Miguel Guajardo MD R2 Jan 04, 2017 19:04
[2017-01-04 20:05] LABS: HEMATOCRIT 25.4 % (39.0-51.0); REVIEW FLAG FINAL
[2017-01-04 20:39] LABS: BICARBONATE 25.3 MEQ/L (21.0-32.0); CALCIUM-PROTEIN CORRECTED 8.4 MG/DL (8.5-10.1); MAGNESIUM 2.1 MG/DL (1.5-2.5); POTASSIUM 4.1 MEQ/L (3.5-5.1); TOTAL BILIRUBIN ADULT 0.3 MG/DL (0.2-1.0)
[2017-01-04] MEDS: methylPREDNISolone SOD SUCC 125 MG/2 ML VIAL IV PUSH SCH (21:00)
[2017-01-04 23:13] LABS: HEMATOCRIT 22.6 % (39.0-51.0); REVIEW FLAG FINAL
[2017-01-05] VITALS (16 sets, daily range): BP systolic 109–147; BP diastolic 57–65; PULSE 76–99; RESP 12–30; TEMP 97.8–99.3; O2SAT 96–100
[2017-01-05] MEDS: methylPREDNISolone SOD SUCC 125 MG/2 ML VIAL IV PUSH SCH ×3 (00:05→13:27)
[2017-01-05] MEDS ORDERED: SODIUM CHLOR 0.9% 250 ML INJ 250 ML IV ONE (01:15)
[2017-01-05] MEDS ORDERED: diphenhydrAMINE HCL 25 MG CAP PO PRN (01:15)
[2017-01-05] MEDS: PANTOPRAZOLE INJ 80 MG in SODIUM CHLORIDE 0.9% INJ 100 ML IV SCH ×2 (04:13→13:33)
[2017-01-05 06:39] LABS: HEMATOCRIT 24.1 % (39.0-51.0); MEAN CELL VOLUME 86.9 FL (80.0-100.0); MEAN CORPUSCULAR HEMOGLOBIN 28.9 PG (27.0-34.0); MEAN CORPUSCULAR HGB CONC 33.3 % (32.0-36.0); PLATELET COUNT 120 TH/MM3 (150-450); RED BLOOD COUNT 2.77 MIL/MM3 (4.50-5.90); RED CELL DISTRIBUTION WIDTH 15.5 % (11.6-17.2); REVIEW FLAG FINAL; WHITE BLOOD COUNT 6.9 TH/MM3 (4.0-11.0)
[2017-01-05] MEDS: RESP: ALBUTEROL 2.5 MG/IPRATROPIUM 0.5 MG NEB (PRN) NEB ×2 (08:14→11:03)
--- NOTE | 2017-01-05 08:19 | HHI.FPPN ---
Subjective Remarks Patient had EGD yesterday morning. After return to floor, pt was noted to have altered mental status and pulled out NG tube. He was placed on soft restraints for his safety. Suspected to be post-anesthesia reaction vs. COPD exacerbation- related hypoxia. Labs collected and Solumedrol started for COPD exacerbation. Patient was seen and examined this morning. He recalls being confused yesterday. He feels better this morning. No shortness of breath now on nasal cannula. No chest pain, N/V. Mild abdominal pain post-procedure. He feels tired but thinks it is because he is in bed since admission. He relays that he had a short course of PO steroids prior to ED visit for COPD in addition to the NSAIDs. (Vickie Sherwood MD R2) Objective Vitals Vital Signs Date Time Temp Pulse Resp B/P (MAP) Pulse Ox O2 Delivery O2 Flow Rate FiO2 01/05/17 06:00 78 01/05/17 04:00 79 01/05/17 04:00 98.1 79 22 115/60 (78) 98 01/05/17 02:15 82 20 118/57 100 01/05/17 02:00 87 01/05/17 01:49 99.3 87 12 109/57 99 01/05/17 00:00 93 01/05/17 00:00 99.3 93 15 110/57 (74) 98 01/04/17 22:00 87 01/04/17 20:41 99 Nasal Cannula 2.00 01/04/17 20:00 98.6 90 23 124/60 (81) 100 01/04/17 20:00 90 01/04/17 18:00 88 01/04/17 16:00 97.7 85 18 111/56 (74) 99 01/04/17 16:00 85 01/04/17 14:00 97.7 77 22 124/58 (80) 94 01/04/17 14:00 72 16 124/68 (86) 97 Nasal Cannula 4 01/04/17 14:00 76 01/04/17 13:50 74 16 139/63 (88) 95 Nasal Cannula 4 01/04/17 13:40 86 16 151/63 (92) 93 Nasal Cannula 4 01/04/17 13:26 97.6 76 16 140/73 (95) 99 Nasal Cannula 4 01/04/17 10:00 86 I/O 01/04/17 01/04/17 01/04/17 01/05/17 01/05/17 01/05/17 07:00 15:00 23:00 07:00 15:00 23:00 Intake Total 0 ml 1000 ml 430 ml 1742 ml Output Total 750 ml 400 ml 825 ml 1800 ml Balance -750 ml 600 ml -825 ml -1370 ml 1742 ml Intake Oral 0 ml IV Total 100 ml 1742 ml Packed Cells 400 ml Blood Product IV Normal Saline Flush 30 ml Other 900 ml Output Urine Total 750 ml 725 ml 1700 ml Gastric Drainage Total 100 ml Emesis 400 ml 100 ml # Bowel Movements 0 (Vickie Sherwood MD R2) Result Diagram: 01/05/17 0501/04/171952 Imaging Last Impressions Chest X-Ray 01/04/17 0600 Signed Impressions: Service Date/Time: December 05:15 - CONCLUSION: 1. Minimal basilar scarring or atelectasis. Tortuous aorta. Nasogastric tube tip in stomach with side-port in distal esophagus. Adam Roach MD Head CT 01/04/17 0000 Signed Impressions: Service Date/Time: December 18:18 - CONCLUSION: No acute intracranial abnormality demonstrated. Atrophy and chronic white matter changes. Derek Carrasco MD Abdomen X-Ray 01/03/17 1753 Signed Impressions: Service Date/Time: Tuesday, January 03, 2017 18:33 - CONCLUSION: 1. Nonobstructive bowel gas pattern. 2. Moderate stool in the right side of the colon. 3. Nasogastric tube tip is in the distal stomach. 4. Consolidation of the visualized left lung base. Derek Carrasco MD Objective Remarks GENERAL: Patient is elderly male, pleasant. SKIN: Warm and dry. Scattered ecchymoses of different areas on extremities, unchanged since admission. HEAD: Atraumatic. Normocephalic. EYES: Pupils equal and round. No scleral icterus. No injection or drainage. ENT: No nasal bleeding or discharge. Mucous membranes pink and moist. NG tube in place, no active drainage noted. NECK: Trachea midline. No JVD. CARDIOVASCULAR: Regular rate and rhythm. Systolic ejection murmur noted, 2/6 intensity. RESPIRATORY: No accessory muscle use. Clear to auscultation. Breath sounds equal bilaterally. GASTROINTESTINAL: Abdomen soft, mildly tender at epigastric area to deep palpation. Nondistended. Hepatic and splenic margins not palpable. : condom catheter in place draining clear yellow fluid MUSCULOSKELETAL: Extremities without clubbing, cyanosis, or edema. No obvious deformities. NEUROLOGICAL: A+O x 4. No obvious cranial nerve deficits. Motor grossly within normal limits. Strength 4/5 in all extremities today. Normal speech. PSYCHIATRIC: Appropriate mood and affect; insight and judgment normal. Medications and IVs Inpatient Medications Albuterol Sulfate (Proair Hfa Inh) 2 puff Q4HR PRN INH SHORTNESS OF BREATH; Start 01/04/17 at 12:00 Albuterol/ Ipratropium (Duoneb Neb) 1 ampule Q4HR NEB PRN NEB SOB/WHEEZING Last administered on 01/05/17 11:03; Start 01/04/17 at 12:00 Bisacodyl (Dulcolax Supp) 10 mg DAILY PRN RECTAL SEVERE CONSITIPATION; Start at 19:45 Chlorhexidine Gluconate (Chlorhexidine 2% Cloth) 3 pack UNSCH PRN TOPICAL HYGIENIC CARE; Start 01/04/17 at 01:15; Stop 01/09/17 at 01:01 Diphenhydramine HCl (Benadryl) 25 mg Q4H PRN PO SEE LABEL COMMENTS; Start 01/05 at 01:15 Epinephrine HCl (EPINEPHrine (1:10,000) INJ) 0.4 mg ONCE ONCE OTHER Last administered on 01/04/17 13:08; Start 01/04/17 at 13:37; Stop 01/04/17 at 13:39 ; Status DC Lactulose (Lactulose Liq) 30 ml DAILY PRN PO SEVERE CONSITIPATION; Start at 19:45 Magnesium Hydroxide (Milk Of Magnesia Liq) 30 ml Q12H PRN PO MILD - MODERATE CONSTIPATION; Start 01/03/17 at 19:45 Methylprednisolone Sodium Succinate (SoluMEDROL INJ) 60 mg Q6H IV PUSH Last administered on 01/05/17 13:27; Start 01/04/17 at 19:00 Miscellaneous Information ALL NURSING DEPARTME... UNSCH PRN .XX SEE LABEL COMMENTS; Start 01/04/17 at 13:25; Stop 01/05/17 at 13:24; Status DC Naloxone HCl (Narcan Inj) 0.4 mg UNSCH PRN IV PUSH SEE LABEL COMMENTS; Start at 19:45 Ondansetron HCl (Zofran Inj) 4 mg Q6HR PRN IV PUSH NAUSEA OR VOMITING; Start at 12:00 Pantoprazole Sodium (Protonix Inj) 40 mg BID IV PUSH Last administered on 21:50; Start 01/03/17 at 21:00; Stop 01/04/17 at 01:38; Status DC Pantoprazole Sodium 80 mg/ Sodium Chloride 100 ml @ 10 mls/hr CONTINUOUS IV Last administered on 01/05/17 13:33; Start 01/03/17 at 20:15 Senna/Docusate Sodium (Alice-Colace) 1 tab BID PO Last administered on 23:00; Start 01/03/17 at 21:00 Sennosides (Senokot) 17.2 mg Q12H PRN PO MODERATE - SEVERE CONSTIPATION; Start 01/03/17 at 19:45 Sodium Chloride 250 ml @ 15 mls/hr ONCE ONCE IV Last administered on 01:42; Start 01/05/17 at 01:15; Stop 01/05/17 at 17:54 Sodium Chloride (NS Flush) 2 ml BID IV FLUSH Last administered on 01/05/17 08: 48; Start 01/03/17 at 21:00 (Vickie Sherwood MD R2) Urinary Catheter: Yes (condom cath) Assessment to: Continue Garcia insert reason: Measure Accurate Output Date of Insertion: Jan 04, 2017 Date of Removal: Jan 06, 2017 (anticipated) (Vickie Sherwood MD R2) Vascular Central Line Catheter: No (Vickie Sherwood MD R2) A/P Assessment and Plan 81-year-old male with past history of hypertension, hyperlipidemia, GERD who has an active upper GI bleed on nasogastric suction. Asymptomatic. Hemoglobin 13.0 on admission with rapid decrease over first 24hr of hospitalization. S/P EGD 01/05/17 showing Dulce Maria Perez tears without gastritis. Confusion post-EGD 01/05, workup showing mildly elevated ammonia. Pt treated for COPD exacerbation, monitored closely. AMS resolved. Will continue to monitor H&H and NG output, likely transition to floor tomorrow if no events Discharge Planning Likely 1-3 days, pending improvement of NG output, stabilization of NG output, GI clearance (Vickie Sherwood MD R2) Attending Attestation Patient seen and examined. Case reviewed and discussed Agree with plan of care as discussed with me and documented in the resident note. (Myriam Martinez MD) Problem List: (1) GI bleed ICD Codes: K92.2 - Gastrointestinal hemorrhage, unspecified Status: Acute Plan: Acute blood loss anemia due to upper GI bleed due to Dulce Marai-Perez tears at EG junction. H&H improved after 1U PRBC 01/04. NG tube to LIS with reduced outpt after EGD cauterization. * Continue NG to LIS, serial H&H * Call GI for any active GI bleeding * Watchful given steroids initiated for COPD exacerbation - cough likely caused Dulce Maria-Perez tears * Serial H&Hs, improved after PRBCs but close monitoring indicated * Continue close monitoring in ICU today * Strict I/Os Hospital Course: * Admitted 01/03 with active GI bleed, suspected to be of upper GI source * Hemoglobin 13.0 in ED. negative Hemoccult performed at admission. * Aggressive fluid management, NPO, NG tube * GI consulted, recommendations 01/04: keep NPO for now, EGD in a few weeks * Protonix drip * Transfusion 1U PRBC 01/04 (2) COPD, frequent exacerbations ICD Codes: J44.9 - Chronic obstructive pulmonary disease, unspecified Status: Acute Plan: Patient with AMS on 01/04, possibly related to hypoxemia. ABG reassuring. However, given cough, AMS, history, treatment for COPD exacerbation initiated . He is on O2 at home. Patient reports significant improvement of symptoms since starting steroids. * Afebrile, no antibiotics, consider if fever or worsening cough * Solumedrol 60mg q6hr 01/04, switched to 40mg q8hr today. Will exercise caution given steroids may worsen gut irritation * Supplemental O2 PRN for goal O2 sat >92% * Duonebs scheduled q4hr, will transition to PRN as indicated * Patient will benefit from long-acting inhaler, will initiate Symbicort (3) Hypertension ICD Codes: I10 - Essential (primary) hypertension Plan: History of hypertension - BP at goal * Continue home metoprolol 50 mg daily when able to tolerate by mouth * PRN Vasotec * Monitor vital signs (4) Hyperlipidemia ICD Codes: E78.5 - Hyperlipidemia, unspecified Plan: History of hyperlipidemia * Resume home atorvastatin 40 mg daily when able to tolerate by mouth (5) FEN Plan: Fluids * Maintenance fluids @ 110cc/hr Electrolytes * Monitor and correct as needed Nutrition * Nothing by mouth DVT prophylaxis: Currently contraindicated due to active bleeding and easy bruising DW Dr. Martinez (Vickie Sherwood MD R2) Vickie Sherwood MD R2 Jan 05, 2017 08:19 Myriam Martinez MD Jan 06, 2017 14:31
[2017-01-05] MEDS: SODIUM CHLOR 0.9% 1000 ML INJ 1,000 ML IV SCH ×2 (08:46→17:29)
[2017-01-05] MEDS: DOCUSATE SODIUM 50 MG/SENNA 8.6 MG TAB PO SCH ×2 (08:48→21:12)
[2017-01-05] MEDS: SODIUM CHLORIDE 0.9% FLUSH 10 ML FLUSH IV FLUSH SCH ×2 (08:48→21:12)
[2017-01-05 11:52] LABS: HEMATOCRIT 25.4 % (39.0-51.0); REVIEW FLAG FINAL
--- NOTE | 2017-01-05 16:56 | HHI.GIFU ---
Subjective Remarks Up in chair. No n/v. NGT with small amount of old appearing dark secretions. No abdominal pain. (Tara Campbell) Objective Vitals I&O Vital Signs Date Time Temp Pulse Resp B/P (MAP) Pulse Ox O2 Delivery O2 Flow Rate FiO2 01/05/17 16:00 97.8 79 23 147/63 (91) 96 01/05/17 16:00 79 01/05/17 16:00 79 01/05/17 16:00 79 23 96 01/05/17 14:00 76 01/05/17 12:00 98.6 83 22 124/60 (81) 96 01/05/17 12:00 83 01/05/17 10:00 81 01/05/17 08:14 98 Nasal Cannula 2.00 01/05/17 08:00 98.2 78 26 131/65 (87) 99 01/05/17 08:00 78 01/05/17 06:00 78 01/05/17 04:00 79 01/05/17 04:00 98.1 79 22 115/60 (78) 98 01/05/17 02:15 82 20 118/57 100 01/05/17 02:00 87 01/05/17 01:49 99.3 87 12 109/57 99 01/05/17 00:00 93 01/05/17 00:00 99.3 93 15 110/57 (74) 98 01/04/17 22:00 87 01/04/17 20:41 99 Nasal Cannula 2.00 01/04/17 20:00 98.6 90 23 124/60 (81) 100 01/04/17 20:00 90 01/04/17 18:00 88 I/O 01/04/17 01/04/17 01/04/17 01/05/17 01/05/17 01/05/17 07:00 15:00 23:00 07:00 15:00 23:00 Intake Total 0 ml 1000 ml 430 ml 1742 ml Output Total 750 ml 400 ml 825 ml 1800 ml Balance -750 ml 600 ml -825 ml -1370 ml 1742 ml Intake Oral 0 ml IV Total 100 ml 1742 ml Packed Cells 400 ml Blood Product IV Normal Saline Flush 30 ml Other 900 ml Output Urine Total 750 ml 725 ml 1700 ml Gastric Drainage Total 100 ml Emesis 400 ml 100 ml # Bowel Movements 0 Laboratory Laboratory Tests Test 01/04/17 17:56 01/04/17 19:53 01/04/17 23:05 01/05/17 05:19 Blood Gas Puncture Site LT RADIAL Blood Gas Patient Temperature 98.6 Blood Gas HCO3 22 Blood Gas Base Excess -3.1 Blood Gas Oxygen Saturation 94 Arterial Blood pH 7.35 Arterial Blood Partial Pressure CO2 40 Arterial Blood Partial Pressure O2 95 Arterial Blood Oxygen Content 10.3 Arterial Blood Carboxyhemoglobin 1.7 Arterial Blood Methemoglobin 1.5 Blood Gas Hemoglobin 7.7 Oxygen Delivery Device NASAL CANNULA Blood Gas Liter Flow 3 Hemoglobin 8.2 7.5 8.0 Hematocrit 25.4 22.6 24.1 Blood Urea Nitrogen 61 Creatinine 1.26 Random Glucose 105 Total Protein 4.8 Albumin 2.6 Calcium Level 7.1 Phosphorus Level 1.8 Magnesium Level 2.1 Alkaline Phosphatase 52 Aspartate Amino Transf (AST/SGOT) 19 Alanine Aminotransferase (ALT/SGPT) 13 Total Bilirubin 0.3 Sodium Level 145 Potassium Level 4.1 Chloride Level 115 Carbon Dioxide Level 25.3 Anion Gap 5 Estimat Glomerular Filtration Rate 55 Protein Corrected Calcium 8.4 Ammonia 43 White Blood Count 6.9 Red Blood Count 2.77 Mean Corpuscular Volume 86.9 Mean Corpuscular Hemoglobin 28.9 Mean Corpuscular Hemoglobin Concent 33.3 Red Cell Distribution Width 15.5 Platelet Count 120 Mean Platelet Volume 8.2 Test 01/05/17 11:30 Hemoglobin 8.7 Hematocrit 25.4 Imaging Last Impressions Chest X-Ray 01/04/17 0600 Signed Impressions: Service Date/Time: December 05:15 - CONCLUSION: 1. Minimal basilar scarring or atelectasis. Tortuous aorta. Nasogastric tube tip in stomach with side-port in distal esophagus. Adam Roach MD Head CT 01/04/17 0000 Signed Impressions: Service Date/Time: December 18:18 - CONCLUSION: No acute intracranial abnormality demonstrated. Atrophy and chronic white matter changes. Derek Carrasco MD Abdomen X-Ray 01/03/17 1753 Signed Impressions: Service Date/Time: Tuesday, January 03, 2017 18:33 - CONCLUSION: 1. Nonobstructive bowel gas pattern. 2. Moderate stool in the right side of the colon. 3. Nasogastric tube tip is in the distal stomach. 4. Consolidation of the visualized left lung base. Derek Carrasco MD Physical Exam HEENT: Normocephalic; atraumatic; no jaundice. CHEST: CTA CARDIAC: RRR ABDOMEN: Soft, nondistended, nontender; no hepatosplenomegaly; bowel sounds are present in all four quadrants. NGT with small amount of old appearing gastric secretions EXTREMITIES: No clubbing, cyanosis, or edema. SKIN: Normal; no rash; no jaundice. 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 (Tara Campbell) Assessment and Plan Plan ASSESSMENT: - Upper GIB with coffee ground/dark maroon emesis. (+) Plavix, (+) Aleve, (+) GERD. No hx of PUD, liver disease. Last egd/colonoscopy < 1 year ago- does not recall the physician's name. Presented with 1 day hx of persistent n/v with dark black and maroon emesis. S/P EGD (01/04/17)---> Active bleeding from raul rader tear. NGT with small amount of old appearing secretions. Protonix Gtt. HH 8.7/25.4. - Anemia, acute blood loss. Type and screen. HH trending down. 8.7/25.4. - GERD, HH. Protonix gtt - DUANE. Improved - CAD, COPD, HTN, Hyperlipidemia per attending. On plavix at home. Currently on hold PLAN: - Clamp NGT - Clear liquids - If no n/v, okay to d/c NGT - D/C protonix gtt - Protonix 40mg IV BID - Monitor HH - Transfuse as necessary - Supportive care - Further recommendations to follow based on results of above - Pt seen and examined by Dr. Alcazar and myself and this note is written on his behalf (Tara Campbell) Plan Patient was seen and examined, agree with above note, he is doing much better, we will DC NG tube and will start liquid diet and advance as tolerated, if his hemoglobin stable patient can be discharged tomorrow (Gypsy Alcazar MD) Tara Campbell Jan 05, 2017 16:56 Gypsy Alcazar MD Jan 05, 2017 18:09
[2017-01-05] MEDS ORDERED: ENALAPRILAT 1.25 MG/ML VIAL IV PUSH PRN (17:00)
[2017-01-05] MEDS: RESP: ALBUTEROL 2.5 MG/IPRATROPIUM 0.5 MG NEB (SCH) NEB ×2 (17:05→21:16)
[2017-01-05 17:15] LABS: HEMATOCRIT 28.9 % (39.0-51.0)
[2017-01-05 17:16] LABS: REVIEW FLAG FINAL
[2017-01-05] MEDS: PANTOPRAZOLE SODIUM 40 MG VIAL IV PUSH SCH (17:29)
[2017-01-05 17:42] LABS: ALKALINE PHOSPHATASE 58 U/L (45-117); ALT (GPT) 16 U/L (12-78); ANION GAP 8 MEQ/L (5-15); AST (GOT) 31 U/L (15-37); BICARBONATE 22.9 MEQ/L (21.0-32.0); BLOOD UREA NITROGEN 40 MG/DL (7-18); CHLORIDE 114 MEQ/L (98-107); GLOMERULAR FILTRATION RATE 56 ML/MIN (>89); POTASSIUM 3.6 MEQ/L (3.5-5.1); SODIUM (NA) 145 MEQ/L (136-145); TOTAL BILIRUBIN ADULT 0.6 MG/DL (0.2-1.0)
[2017-01-05 20:37] LABS: HEMATOCRIT 24.9 % (39.0-51.0); REVIEW FLAG FINAL
[2017-01-05] MEDS: BUDESONIDE-FORMOTEROL 80/4.5 MCG INHALER INH SCH (21:12)
[2017-01-05] MEDS: methylPREDNISolone SOD SUCC 40 MG/1 ML VIAL IV PUSH SCH (21:12)
[2017-01-06] VITALS (16 sets, daily range): BP systolic 118–174; BP diastolic 57–90; PULSE 77–97; RESP 15–38; TEMP 97.6–98.3; O2SAT 90–99
[2017-01-06] MEDS: CHLORHEXIDINE GLUCONATE 2 % 1 PACK (2 CLOTHS)(taper/protocol) TOPICAL SCH (04:00)
[2017-01-06] MEDS: PANTOPRAZOLE SODIUM 40 MG VIAL IV PUSH SCH ×2 (05:48→19:01)
[2017-01-06] MEDS: methylPREDNISolone SOD SUCC 40 MG/1 ML VIAL IV PUSH SCH ×2 (05:48→19:01)
[2017-01-06] MEDS: SODIUM CHLOR 0.9% 1000 ML INJ 1,000 ML IV SCH (05:49)
[2017-01-06 06:10] LABS: AUTOMATED NEUTROPHIL # 9.5 TH/MM3 (1.8-7.7); BASOPHIL % 0.1 % (0.0-2.0); HEMATOCRIT 22.1 % (39.0-51.0); LYMPHOCYTE # 0.9 TH/MM3 (1.0-4.8); MEAN CELL VOLUME 85.8 FL (80.0-100.0); MEAN CORPUSCULAR HEMOGLOBIN 28.9 PG (27.0-34.0); MEAN CORPUSCULAR HGB CONC 33.6 % (32.0-36.0); MONO % 4.3 % (0.0-8.0); NEUT % 87.6 % (16.0-70.0); PLATELET COUNT 124 TH/MM3 (150-450); RED BLOOD COUNT 2.57 MIL/MM3 (4.50-5.90); RED CELL DISTRIBUTION WIDTH 15.3 % (11.6-17.2); WHITE BLOOD COUNT 10.8 TH/MM3 (4.0-11.0)
[2017-01-06 06:26] LABS: HEMO FLAGS AUTO DIFF
[2017-01-06 06:48] LABS: BICARBONATE 22.6 MEQ/L (21.0-32.0); CALCIUM-PROTEIN CORRECTED 8.4 MG/DL (8.5-10.1); POTASSIUM 3.1 MEQ/L (3.5-5.1); TOTAL BILIRUBIN ADULT 0.4 MG/DL (0.2-1.0)
[2017-01-06 08:11] LABS: BANDS 10 % (0-6); METAMYELOCYTES 1 % (0-1); MYELOCYTES 1 % (0-0); NEUTROPHIL # MANUAL DIFF 9.3 TH/MM3 (1.8-7.7); OVALOCYTES 1+ (NORMAL); POLYS (SEG NEUTROPHILS) 74 % (16-70); WBC DIFF SAMPLE 100
[2017-01-06 08:12] LABS: PLATELET ESTIMATE SMEAR LOW (NORMAL); PLATELET MORPHOLOGY NORMAL (NORMAL); SCAN/DIFF FINAL DIFF MANUAL
[2017-01-06] MEDS ORDERED: SODIUM CHLOR 0.9% 250 ML INJ 250 ML IV ONE (08:15)
[2017-01-06] MEDS: DOCUSATE SODIUM 50 MG/SENNA 8.6 MG TAB PO SCH ×2 (09:13→22:12)
[2017-01-06] MEDS: BUDESONIDE-FORMOTEROL 80/4.5 MCG INHALER INH SCH ×2 (09:14→21:00)
[2017-01-06] MEDS: SODIUM CHLORIDE 0.9% FLUSH 10 ML FLUSH IV FLUSH SCH ×2 (09:14→22:15)
[2017-01-06] MEDS: RESP: ALBUTEROL 2.5 MG/IPRATROPIUM 0.5 MG NEB (SCH) NEB ×4 (09:24→20:45)
--- NOTE | 2017-01-06 10:53 | HHI.GIFU ---
Subjective Remarks Followup for UGIB. Sitting up in chair. Denies abdominal pain. No nausea or vomiting. Denies active bleeding. NGT was discontinued. Tolerating liquid diet. (Paty Maza) Objective Vitals I&O Vital Signs Date Time Temp Pulse Resp B/P (MAP) Pulse Ox O2 Delivery O2 Flow Rate FiO2 01/06/17 10:00 90 31 145/90 (108) 97 01/06/17 10:00 90 01/06/17 09:25 97 Nasal Cannula 2.00 01/06/17 09:00 97 38 146/65 (92) 90 01/06/17 08:00 97.9 83 33 174/69 (104) 93 01/06/17 08:00 82 01/06/17 06:00 77 01/06/17 04:00 98.0 79 15 118/57 (77) 97 01/06/17 04:00 79 01/06/17 02:00 86 01/06/17 00:00 91 01/06/17 00:00 98.2 91 26 121/57 (78) 95 01/05/17 22:00 99 01/05/17 21:16 98 Nasal Cannula 2.00 01/05/17 20:00 97 01/05/17 20:00 98.7 97 30 142/65 (90) 98 01/05/17 18:00 86 01/05/17 16:00 97.8 79 23 147/63 (91) 96 01/05/17 16:00 79 01/05/17 16:00 79 23 96 01/05/17 14:00 76 01/05/17 12:00 98.6 83 22 124/60 (81) 96 01/05/17 12:00 83 I/O 01/05/17 01/05/17 01/05/17 01/06/17 01/06/17 01/06/17 07:00 15:00 23:00 07:00 15:00 23:00 Intake Total 430 ml 1742 ml 1379 ml 700 ml 811 ml Output Total 1800 ml 700 ml 800 ml Balance -1370 ml 1742 ml 679 ml -100 ml 811 ml Intake Oral 240 ml 700 ml IV Total 1742 ml 1139 ml 811 ml Packed Cells 400 ml Blood Product IV Normal Saline Flush 30 ml Output Urine Total 1700 ml 650 ml 800 ml Gastric Drainage Total 100 ml 50 ml Laboratory Laboratory Tests Test 01/05/17 11:30 01/05/17 16:30 01/05/17 16:32 01/05/17 20:23 Hemoglobin 8.7 9.3 8.1 Hematocrit 25.4 28.9 24.9 Blood Urea Nitrogen 40 Creatinine 1.23 Random Glucose 141 Total Protein 5.8 Albumin 3.0 Calcium Level 7.9 Alkaline Phosphatase 58 Aspartate Amino Transf (AST/SGOT) 31 Alanine Aminotransferase (ALT/SGPT) 16 Total Bilirubin 0.6 Sodium Level 145 Potassium Level 3.6 Chloride Level 114 Carbon Dioxide Level 22.9 Anion Gap 8 Estimat Glomerular Filtration Rate 56 Test 01/06/17 05:36 White Blood Count 10.8 Red Blood Count 2.57 Hemoglobin 7.4 Hematocrit 22.1 Mean Corpuscular Volume 85.8 Mean Corpuscular Hemoglobin 28.9 Mean Corpuscular Hemoglobin Concent 33.6 Red Cell Distribution Width 15.3 Platelet Count 124 Mean Platelet Volume 7.9 Neutrophils (%) (Auto) 87.6 Lymphocytes (%) (Auto) 8.0 Monocytes (%) (Auto) 4.3 Eosinophils (%) (Auto) 0.0 Basophils (%) (Auto) 0.1 Neutrophils # (Auto) 9.5 Lymphocytes # (Auto) 0.9 Monocytes # (Auto) 0.5 Eosinophils # (Auto) 0.0 Basophils # (Auto) 0.0 CBC Comment AUTO DIFF Differential Total Cells Counted 100 Neutrophils % (Manual) 74 Band Neutrophils % 10 Lymphocytes % 8 Monocytes % 6 Neutrophils # (Manual) 9.3 Metamyelocytes 1 Myelocytes 1 Differential Comment FINAL DIFF MANUAL Platelet Estimate LOW Platelet Morphology Comment NORMAL Ovalocytes 1+ Blood Urea Nitrogen 33 Creatinine 1.19 Random Glucose 128 Total Protein 4.8 Albumin 2.5 Calcium Level 7.1 Alkaline Phosphatase 45 Aspartate Amino Transf (AST/SGOT) 54 Alanine Aminotransferase (ALT/SGPT) 19 Total Bilirubin 0.4 Sodium Level 144 Potassium Level 3.1 Chloride Level 114 Carbon Dioxide Level 22.6 Anion Gap 7 Estimat Glomerular Filtration Rate 59 Protein Corrected Calcium 8.4 Imaging Last Impressions Chest X-Ray 01/04/17 0600 Signed Impressions: Service Date/Time: December 05:15 - CONCLUSION: 1. Minimal basilar scarring or atelectasis. Tortuous aorta. Nasogastric tube tip in stomach with side-port in distal esophagus. Adam Roach MD Head CT 01/04/17 0000 Signed Impressions: Service Date/Time: December 18:18 - CONCLUSION: No acute intracranial abnormality demonstrated. Atrophy and chronic white matter changes. Derek Carrasco MD Abdomen X-Ray 01/03/17 1753 Signed Impressions: Service Date/Time: Tuesday, January 03, 2017 18:33 - CONCLUSION: 1. Nonobstructive bowel gas pattern. 2. Moderate stool in the right side of the colon. 3. Nasogastric tube tip is in the distal stomach. 4. Consolidation of the visualized left lung base. Derek Carrasco MD Physical Exam HEENT: Normocephalic; atraumatic; no jaundice. CHEST: CTA CARDIAC: RRR ABDOMEN: Soft, nondistended, nontender; no hepatosplenomegaly; bowel sounds are present EXTREMITIES: No clubbing, cyanosis, or edema. SKIN: Normal; no rash; no jaundice. 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 (+) Plavix, (+) Aleve, (+) GERD. No hx of PUD, liver disease. Last egd/colonoscopy < 1 year ago- does not recall the physician's name. Presented with 1 day hx of persistent n/v with dark black and maroon emesis. S/P EGD (01/04/17)---> Active bleeding from raul rader tear. Protonix Gtt. HH 8.7/25.4 (01/05), 7.4/22.1 (01/06). NGT discontinued. - Anemia, acute blood loss. HH trending down. S/P 1 transfusion 01/05. 8.1/24.9 ( 01/05), 7.4/22.1 (01/06) - GERD, HH as above. Protonix gtt - DUANE. Improved - CAD, COPD, HTN, Hyperlipidemia per attending. On plavix at home. Currently on hold PLAN: - Advance diet to regular - Continue Protonix 40mg IV BID - Monitor HH - Transfuse as necessary - Notify GI of active bleeding - Supportive care - Further recommendations to follow based on results of above Patient seen and examined by Dr. Alcazar and myself and this note is written on his behalf (Paty Maza) Plan Patient was seen and examined, agree with above note, diet as tolerated, continue monitoring H&H (Gypsy Alcazar MD) Paty Maza Jan 06, 2017 10:53 Gypsy Alcazar MD Jan 06, 2017 20:32
[2017-01-06] MEDS: guaiFENesin E.R. 600 MG TAB PO SCH (12:16)
--- NOTE | 2017-01-06 12:24 | HHI.FPPN ---
Subjective Remarks Patient seen and examined this morning. States he's feeling much better. Endorses occasional coughing, coughing fits can last up to 2 minutes. This is similar to when he is at home. Some shortness of breath however this is at baseline. No chest pain. Tolerating liquids. No nausea, vomiting, lightheadedness, dizziness, palpitations, normal urination, abdominal pain, constipated however he states he typically only defecates once every 5 or 6 days with the aid of milk of magnesia. Positive flatus. (Sekou Magaña MD R1) Objective Vitals Vital Signs Date Time Temp Pulse Resp B/P (MAP) Pulse Ox O2 Delivery O2 Flow Rate FiO2 01/06/17 10:00 90 31 145/90 (108) 97 01/06/17 10:00 90 01/06/17 09:25 97 Nasal Cannula 2.00 01/06/17 09:00 97 38 146/65 (92) 90 01/06/17 08:00 97.9 83 33 174/69 (104) 93 01/06/17 08:00 82 01/06/17 06:00 77 01/06/17 04:00 98.0 79 15 118/57 (77) 97 01/06/17 04:00 79 01/06/17 02:00 86 01/06/17 00:00 91 01/06/17 00:00 98.2 91 26 121/57 (78) 95 01/05/17 22:00 99 01/05/17 21:16 98 Nasal Cannula 2.00 01/05/17 20:00 97 01/05/17 20:00 98.7 97 30 142/65 (90) 98 01/05/17 18:00 86 01/05/17 16:00 97.8 79 23 147/63 (91) 96 01/05/17 16:00 79 01/05/17 16:00 79 23 96 01/05/17 14:00 76 I/O 01/05/17 01/05/17 01/05/17 01/06/17 01/06/17 01/06/17 07:00 15:00 23:00 07:00 15:00 23:00 Intake Total 430 ml 1742 ml 1379 ml 700 ml 811 ml Output Total 1800 ml 700 ml 800 ml Balance -1370 ml 1742 ml 679 ml -100 ml 811 ml Intake Oral 240 ml 700 ml IV Total 1742 ml 1139 ml 811 ml Packed Cells 400 ml Blood Product IV Normal Saline Flush 30 ml Output Urine Total 1700 ml 650 ml 800 ml Gastric Drainage Total 100 ml 50 ml (Sekou Magaña MD R1) Result Diagram: 01/06/1753501/06/17535 Objective Remarks GENERAL: Patient is elderly male, pleasant. SKIN: Warm and dry. Scattered ecchymoses of different areas on extremities, unchanged since admission. HEAD: Atraumatic. Normocephalic. EYES: Pupils equal and round. No scleral icterus. No injection or drainage. ENT: No nasal bleeding or discharge. Mucous membranes pink and moist. NECK: Trachea midline. No JVD. CARDIOVASCULAR: Regular rate and rhythm. Systolic ejection murmur noted, 2/6 intensity. RESPIRATORY: No accessory muscle use. Minor wheezing in bases. Breath sounds equal bilaterally. GASTROINTESTINAL: Abdomen soft, mildly tender at epigastric area to deep palpation. Nondistended. Hepatic and splenic margins not palpable. : condom catheter in place draining clear yellow fluid MUSCULOSKELETAL: Extremities without clubbing, cyanosis, or edema. No obvious deformities. NEUROLOGICAL: A+O x 4. No obvious cranial nerve deficits. Motor grossly within normal limits. Strength 5/5 in all extremities today. Normal speech. PSYCHIATRIC: Appropriate mood and affect; insight and judgment normal. Medications and IVs Current Medications Medications (Trade) Dose Ordered Sig/Aleks Route Start Time Stop Time Status Last Admin (NS Flush) 2 ml UNSCH PRN IV FLUSH 01/03/17 19:00 01/06/17 05:48 (NS Flush) 2 ml BID IV FLUSH 01/03/17 21:00 01/06/17 09:14 Sodium Chloride 1,000 ml @ 75 mls/hr [id number] IV 01/03/17 20:00 01/06/17 05:49 (Narcan Inj) 0.4 mg UNSCH PRN IV PUSH 01/03/17 19:45 (Alice-Colace) 1 tab BID PO 01/03/17 21:00 01/06/17 09:13 (Milk Of Magnesia Liq) 30 ml Q12H PRN PO 01/03/17 19:45 (Senokot) 17.2 mg Q12H PRN PO 01/03/17 19:45 (Dulcolax Supp) 10 mg DAILY PRN RECTAL 01/03/17 19:45 (Lactulose Liq) 30 ml DAILY PRN PO 01/03/17 19:45 Miscellaneous Information Patient in critical care unit? Ass... [id number] .XX 01/04/17 01:15 (Chlorhexidine 2% Cloth) 3 pack DAILY@04 TOPICAL 01/04/17 04:00 01/08/17 04:01 01/06/17 04:00 (Chlorhexidine 2% Cloth) 3 pack UNSCH PRN TOPICAL 01/04/17 01:15 01/09/17 01:01 (Proair Hfa Inh) 2 puff Q4HR PRN INH 01/04/17 12:00 (Zofran Inj) 4 mg Q6HR PRN IV PUSH 01/04/17 12:00 (Benadryl) 25 mg Q4H PRN PO 01/05/17 01:15 (Vasotec Inj) 1.25 mg Q6H PRN IV PUSH 01/05/17 17:00 (Duoneb Neb) 1 ampule Q4HR WHILE AWAKE NEB NEB 01/05/17 17:00 01/06/17 12:03 (Symbicort 80-4.5 Mcg Inh) 2 puff Q12HR INH 01/05/17 21:00 01/06/17 09:14 (Protonix Inj) 40 mg Q12H IV PUSH 01/05/17 18:00 01/06/17 05:48 Sodium Chloride 250 ml @ 15 mls/hr ONCE ONCE IV 01/06/17 08:15 01/07/17 00:54 (SoluMEDROL INJ) 40 mg Q12H IV PUSH 01/06/17 18:00 (Mucinex Er) 600 mg DAILY PO 01/06/17 12:00 (Sekou Magaña MD R1) Date of Insertion: Jan 04, 2017 Date of Removal: Jan 06, 2017 (anticipated) (Sekou Magaña MD R1) A/P Assessment and Plan 81-year-old male with past history of hypertension, hyperlipidemia, GERD who has an active upper GI bleed on nasogastric suction. Asymptomatic. Hemoglobin 13.0 on admission with rapid decrease over first 24hr of hospitalization. S/P EGD 01/05/17 showing Dulce Maria Perez tears without gastritis. Confusion post-EGD 01/05, workup showing mildly elevated ammonia. Pt treated for COPD exacerbation, monitored closely. AMS resolved. To transition to normal med/surg floor. NG tube discontinued, tolerating liquids. Discharge Planning Likely 1-2 days, pending improvement of hemoglobin (Sekou Magaña MD R1) Attending Attestation Patient seen and examined with Dr. Magaña. Case reviewed and discussed Agree with plan of care as discussed with me and documented in the resident note. (Myriam Martinez MD) Problem List: (1) GI bleed ICD Codes: K92.2 - Gastrointestinal hemorrhage, unspecified Status: Acute Plan: Acute blood loss anemia due to upper GI bleed due to Dulce Maria-Perez tears at EG junction. H&H improved after 1U PRBC 01/04. NG tube to LIS with reduced outpt after EGD cauterization. NG tube currently discontinued * serial H&H * Call GI for any active GI bleeding * Watchful given steroids initiated for COPD exacerbation - cough possible contributed to Dulce Maria-Perez tears * Serial H&Hs, improved after PRBCs but close monitoring indicated * Hemoglobin 7.4 this morning, to receive second unit of PRBC * Transition to med/surg * Strict I/Os * Notes chronic "spitting up/ vomiting" Gastric emptying study likely useful outpatient Hospital Course: * Admitted 01/03 with active GI bleed, suspected to be of upper GI source * Hemoglobin 13.0 in ED. negative Hemoccult performed at admission. * Aggressive fluid management, NPO, NG tube * GI consulted, recommendations 01/04: keep NPO for now, EGD in a few weeks * Protonix drip * Transfusion 1U PRBC 01/04 (2) COPD, frequent exacerbations ICD Codes: J44.9 - Chronic obstructive pulmonary disease, unspecified Status: Acute Plan: Patient with AMS on 01/04, possibly related to hypoxemia. ABG reassuring. However, given cough, AMS, history, treatment for COPD exacerbation initiated . He is on O2 at home. Patient reports significant improvement of symptoms since starting steroids. * Afebrile, no antibiotics, consider if fever or worsening cough * Solumedrol 60mg q6hr 01/04, switched to 40mg q8hr yesterday.. 40mg q12 today. Will exercise caution given steroids may worsen gut irritation * Supplemental O2 PRN for goal O2 sat >92% * Duonebs scheduled q4hr, will transition to PRN as indicated * Patient will benefit from long-acting inhaler, will initiate Symbicort * Mucinex (3) Hypertension ICD Codes: I10 - Essential (primary) hypertension Plan: History of hypertension - BP at goal * Continue home metoprolol 50 mg daily when able to tolerate by mouth * PRN Vasotec * Monitor vital signs (4) Hyperlipidemia ICD Codes: E78.5 - Hyperlipidemia, unspecified Plan: History of hyperlipidemia * Resume home atorvastatin 40 mg daily when able to tolerate by mouth (5) FEN Plan: Fluids * Maintenance fluids @ 110cc/hr Electrolytes * Monitor and correct as needed Nutrition * Liquids DVT prophylaxis: Currently contraindicated due to active bleeding and easy bruising DW Dr. Martinez (Sekou Magaña MD R1) Sekou Magaña MD R1 Jan 06, 2017 12:24 Myriam Martinez MD Jan 06, 2017 14:35
[2017-01-06] MEDS: ACETAMINOPHEN 325 MG TAB PO PRN (19:00)
[2017-01-06 19:44] LABS: HEMATOCRIT 26.9 % (39.0-51.0)
[2017-01-06] MEDS ORDERED: POTASSIUM CHLORIDE 20 MEQ CONTROLLED RELEASE TAB PO ONE (21:00)
[2017-01-06] MEDS: ATORVASTATIN 40 MG TAB PO SCH (22:12)
[2017-01-07] VITALS (9 sets, daily range): BP systolic 121–162; BP diastolic 57–83; PULSE 74–93; RESP 20–24; TEMP 97.5–98.9; O2SAT 91–97
[2017-01-07] MEDS: CHLORHEXIDINE GLUCONATE 2 % 1 PACK (2 CLOTHS)(taper/protocol) TOPICAL SCH ×2 (04:00→21:14)
[2017-01-07] MEDS: PANTOPRAZOLE SODIUM 40 MG VIAL IV PUSH SCH (06:15)
[2017-01-07] MEDS: methylPREDNISolone SOD SUCC 40 MG/1 ML VIAL IV PUSH SCH ×2 (06:16→18:05)
[2017-01-07 07:56] LABS: HEMATOCRIT 28.4 % (39.0-51.0); MEAN CELL VOLUME 84.1 FL (80.0-100.0); MEAN CORPUSCULAR HEMOGLOBIN 28.6 PG (27.0-34.0); PLATELET COUNT 179 TH/MM3 (150-450); RED BLOOD COUNT 3.38 MIL/MM3 (4.50-5.90); RED CELL DISTRIBUTION WIDTH 15.8 % (11.6-17.2); REVIEW FLAG FINAL; WHITE BLOOD COUNT 18.2 TH/MM3 (4.0-11.0)
[2017-01-07 08:29] LABS: BICARBONATE 26.3 MEQ/L (21.0-32.0); POTASSIUM 4.1 MEQ/L (3.5-5.1)
[2017-01-07] MEDS ORDERED: RESP: ALBUTEROL 2.5 MG/IPRATROPIUM 0.5 MG NEB (SCH) NEB ONE (08:30)
--- NOTE | 2017-01-07 09:20 | HHI.FPPN ---
Subjective Remarks Patient seen and examined today. He states he is having increased difficulty breathing worse than baseline. He reports that this morning he wanted to the bathroom however his action tubing was not long enough, so he removed it and proceeded to go to the bathroom. Following this he found a much more difficult to breathe, returned his bed, and replaced nasal cannula. He reports he had no breathing treatments overnight and has yet to have one today. Coughing up white phlegm. No pain chest, nausea, vomiting, fever, chills. He also notes that he has not passed a bowel movement in 6 days. This is normal for him, however he had milk of magnesia, which usually produces a bowel movement, but it hasn't while he has been in the hospital. Still passing flatus, notes some distention, no abdominal pain. No other events overnight. Objective Vitals Vital Signs Date Time Temp Pulse Resp B/P (MAP) Pulse Ox O2 Delivery O2 Flow Rate FiO2 01/07/17 04:00 97.7 76 22 124/57 (79) 94 01/07/17 02:59 78 01/07/17 00:00 97.7 80 24 121/57 (78) 94 01/06/17 20:49 93 Nasal Cannula 4.00 01/06/17 20:00 98.0 91 22 136/63 (87) 93 01/06/17 16:00 83 01/06/17 16:00 98.3 83 24 161/72 (101) 98 01/06/17 14:25 97.6 82 18 134/64 (87) 91 01/06/17 14:00 86 01/06/17 13:13 98.3 90 21 144/77 98 01/06/17 12:57 98.0 91 20 151/69 99 01/06/17 12:00 85 01/06/17 12:00 98.0 85 25 151/69 (96) 97 01/06/17 10:00 90 31 145/90 (108) 97 01/06/17 10:00 90 01/06/17 09:25 97 Nasal Cannula 2.00 I/O 01/06/17 01/06/17 01/06/17 01/07/17 01/07/17 01/07/17 07:00 15:00 23:00 07:00 15:00 23:00 Intake Total 700 ml 826 ml 690 ml 320 ml Output Total 800 ml 175 ml Balance -100 ml 826 ml 690 ml 145 ml Intake Oral 700 ml 240 ml 320 ml IV Total 811 ml Packed Cells 400 ml Blood Product IV Normal Saline Flush 15 ml 50 ml Output Urine Total 800 ml 175 ml # Voids 0 2 # Bowel Movements 0 0 Result Diagram: 01/07/1771801/07/17718 Objective Remarks GENERAL: Patient is elderly male, pleasant. SKIN: Warm and dry. Scattered ecchymoses of different areas on extremities, unchanged since admission. HEAD: Atraumatic. Normocephalic. EYES: Pupils equal and round. No scleral icterus. No injection or drainage. ENT: No nasal bleeding or discharge. Mucous membranes pink and moist. NECK: Trachea midline. No JVD. CARDIOVASCULAR: Regular rate and rhythm. Systolic ejection murmur noted, 2/6 intensity. RESPIRATORY: No accessory muscle use. Minor wheezing in bases, unchanged. Breath sounds equal bilaterally. GASTROINTESTINAL: Abdomen soft, mildly distended, nontender. Reduced bowel sounds. Hepatic and splenic margins not palpable. MUSCULOSKELETAL: Extremities without clubbing, cyanosis, or edema. No obvious deformities. NEUROLOGICAL: A+O x 4. No obvious cranial nerve deficits. Motor grossly within normal limits. Strength 5/5 in all extremities today. Normal speech. PSYCHIATRIC: Appropriate mood and affect; insight and judgment normal. Date of Insertion: Jan 04, 2017 Date of Removal: Jan 06, 2017 (anticipated) A/P Assessment and Plan 81-year-old male with past history of hypertension, hyperlipidemia, GERD who has an active upper GI bleed on nasogastric suction. Asymptomatic. Hemoglobin 13.0 on admission with rapid decrease over first 24hr of hospitalization. S/P EGD 01/05/17 showing Dulce Maria Perez tears without gastritis. Confusion post-EGD 01/05, workup showing mildly elevated ammonia. Pt treated for COPD exacerbation, monitored closely. AMS resolved. To transition to normal med/surg floor. NG tube discontinued, tolerating liquids. Discharge Planning Likely 1-2 days, pending improvement of hemoglobin Problem List: (1) GI bleed ICD Codes: K92.2 - Gastrointestinal hemorrhage, unspecified Status: Acute Plan: Acute blood loss anemia due to upper GI bleed due to Dulce Maria-Perez tears at EG junction. H&H improved after 1U PRBC 01/04. NG tube to LIS with reduced outpt after EGD cauterization. NG tube currently discontinued. * Daily CBC * Avoid red liquids * Call GI for any active GI bleeding * Watchful given steroids initiated for COPD exacerbation - cough possible contributed to Dulce Maria-Perez tears * Hemoglobin 9.7 this morning, improving, received second unit of PRBC 01/06 * Strict I/Os * Notes chronic "spitting up/ vomiting" Gastric emptying study likely useful outpatient Hospital Course: * Admitted 01/03 with active GI bleed, suspected to be of upper GI source * Hemoglobin 13.0 in ED. negative Hemoccult performed at admission. * Aggressive fluid management, NPO, NG tube * GI consulted, recommendations 01/04: keep NPO for now, EGD in a few weeks * Protonix drip * Transfusion 1U PRBC 01/04 (2) COPD, frequent exacerbations ICD Codes: J44.9 - Chronic obstructive pulmonary disease, unspecified Status: Acute Plan: Patient with AMS on 01/04, possibly related to hypoxemia. ABG reassuring. However, given cough, AMS, history, treatment for COPD exacerbation initiated . He is on O2 at home. Patient reports significant improvement of symptoms since starting steroids. * Afebrile, no antibiotics, consider if fever or worsening cough * Solumedrol 60mg q6hr 01/04, switched to 40mg q8hr 01/05.. 40mg q12 01/06. Will exercise caution given steroids may worsen gut irritation * Supplemental O2 PRN for goal O2 sat >92% * Duonebs scheduled q4hr, will transition to PRN as indicated * Patient will benefit from long-acting inhaler, will initiate Symbicort * Mucinex added * F/U Sputum culture * F/U patient's status following breathing treatment * F/U CXR (3) Constipation ICD Codes: K59.00 - Constipation, unspecified Plan: Patient reports he has a bowel movement every 6 days typically aided by milk of magnesia. Currently has not had a bowel movement in 6 days and did not produce one after milk of magnesia ingestion. Reports the in-hospital milk of magnesia may have been less than his typical dose. Had recently been NPO with an NG tube for several days. Transitioned to solid foods 01/06 * Chronically constipated with recent extended NPO, possibly nonpathologic * Reports he's been eating his full meals, encouraged to continue * Administer second dose of milk of magnesia * Consider enema if MOM is nonproductive (4) Hypertension ICD Codes: I10 - Essential (primary) hypertension Plan: History of hypertension - BP at goal * Continue home metoprolol 50 mg daily when able to tolerate by mouth * PRN Vasotec * Monitor vital signs (5) Hyperlipidemia ICD Codes: E78.5 - Hyperlipidemia, unspecified Plan: History of hyperlipidemia * Resume home atorvastatin 40 mg daily when able to tolerate by mouth (6) FEN Plan: Fluids * Maintenance fluids @ 110cc/hr Electrolytes * Monitor and correct as needed Nutrition * Liquids DVT prophylaxis: Currently contraindicated due to active bleeding and easy bruising DW Dr. Juan Magaña,Sekou Hubbard MD R1 Jan 07, 2017 09:20
[2017-01-07] MEDS ORDERED: MAGNESIUM HYDROXIDE SUSP 30 ML CUP PO ONE (10:00)
[2017-01-07] MEDS: BUDESONIDE-FORMOTEROL 80/4.5 MCG INHALER INH SCH ×2 (10:17→21:11)
[2017-01-07] MEDS: DOCUSATE SODIUM 50 MG/SENNA 8.6 MG TAB PO SCH ×2 (10:19→21:00)
[2017-01-07] MEDS: METOPROLOL TARTRATE 50 MG TAB PO SCH (10:19)
[2017-01-07] MEDS: guaiFENesin E.R. 600 MG TAB PO SCH (10:19)
[2017-01-07] MEDS: TRIAMTERENE/HCTZ 37.5 MG/25 MG TAB PO SCH (10:20)
[2017-01-07] MEDS: SODIUM CHLORIDE 0.9% FLUSH 10 ML FLUSH IV FLUSH SCH ×2 (10:21→21:14)
--- NOTE | 2017-01-07 11:05 | HHI.GIFU ---
Subjective Remarks Tolerating diet and no further bleeding. No bm for several days. C/O worsening breathing/wheezing/sob today. CXR pending. (Tara Campbell) Objective Vitals I&O Vital Signs Date Time Temp Pulse Resp B/P (MAP) Pulse Ox O2 Delivery O2 Flow Rate FiO2 01/07/17 09:16 93 Nasal Cannula 4.00 01/07/17 08:00 98.3 93 21 162/78 (106) 91 01/07/17 04:00 97.7 76 22 124/57 (79) 94 01/07/17 02:59 78 01/07/17 00:00 97.7 80 24 121/57 (78) 94 01/06/17 20:49 93 Nasal Cannula 4.00 01/06/17 20:00 98.0 91 22 136/63 (87) 93 01/06/17 16:00 83 01/06/17 16:00 98.3 83 24 161/72 (101) 98 01/06/17 14:25 97.6 82 18 134/64 (87) 91 01/06/17 14:00 86 01/06/17 13:13 98.3 90 21 144/77 98 01/06/17 12:57 98.0 91 20 151/69 99 01/06/17 12:00 85 01/06/17 12:00 98.0 85 25 151/69 (96) 97 I/O 01/06/17 01/06/17 01/06/17 01/07/17 01/07/17 01/07/17 07:00 15:00 23:00 07:00 15:00 23:00 Intake Total 700 ml 826 ml 690 ml 320 ml Output Total 800 ml 175 ml Balance -100 ml 826 ml 690 ml 145 ml Intake Oral 700 ml 240 ml 320 ml IV Total 811 ml Packed Cells 400 ml Blood Product IV Normal Saline Flush 15 ml 50 ml Output Urine Total 800 ml 175 ml # Voids 0 2 # Bowel Movements 0 0 Laboratory Laboratory Tests Test 01/06/17 19:10 01/07/17 07:19 Hemoglobin 8.8 9.7 Hematocrit 26.9 28.4 Potassium Level 3.2 4.1 White Blood Count 18.2 Red Blood Count 3.38 Mean Corpuscular Volume 84.1 Mean Corpuscular Hemoglobin 28.6 Mean Corpuscular Hemoglobin Concent 34.0 Red Cell Distribution Width 15.8 Platelet Count 179 Mean Platelet Volume 8.3 Blood Urea Nitrogen 27 Creatinine 1.25 Random Glucose 108 Calcium Level 7.7 Sodium Level 142 Chloride Level 108 Carbon Dioxide Level 26.3 Anion Gap 8 Estimat Glomerular Filtration Rate 55 Date/Time Source Procedure Growth Status 01/07/17 10:30 Sputum Expectorated Sputum Gram Stain Pending Received 01/07/17 10:30 Sputum Expectorated Sputum Sputum Culture Pending Received Imaging Last Impressions Chest X-Ray 01/04/17 0600 Signed Impressions: Service Date/Time: December 05:15 - CONCLUSION: 1. Minimal basilar scarring or atelectasis. Tortuous aorta. Nasogastric tube tip in stomach with side-port in distal esophagus. Adam Roach MD Head CT 01/04/17 0000 Signed Impressions: Service Date/Time: December 18:18 - CONCLUSION: No acute intracranial abnormality demonstrated. Atrophy and chronic white matter changes. Derek Carrasco MD Abdomen X-Ray 01/03/17 1753 Signed Impressions: Service Date/Time: Tuesday, January 03, 2017 18:33 - CONCLUSION: 1. Nonobstructive bowel gas pattern. 2. Moderate stool in the right side of the colon. 3. Nasogastric tube tip is in the distal stomach. 4. Consolidation of the visualized left lung base. Derek Carrasco MD Physical Exam HEENT: Normocephalic; atraumatic; no jaundice. CHEST: Diminished, expiratory wheezing, more on left CARDIAC: RRR ABDOMEN: Soft, nondistended, nontender; no hepatosplenomegaly; bowel sounds are present EXTREMITIES: No clubbing, cyanosis, or edema. SKIN: Normal; no rash; no jaundice. HABITAT BIOLOGIST: No focal deficits; alert and oriented x 3 (Tara CampbellP) Assessment and Plan Plan ASSESSMENT: - Upper GIB with coffee ground/dark maroon emesis. (+) Plavix, (+) Aleve, (+) GERD. No hx of PUD, liver disease. Last egd/colonoscopy < 1 year ago- does not recall the physician's name. Presented with 1 day hx of persistent n/v with dark black and maroon emesis. S/P EGD (01/04/17)---> Active bleeding from raul rader tear. No further bleeding. Protonix. S/P 2 units PRBC. .11/03.4. - Anemia, acute blood loss. S/P 2 units PRBC. .4. - GERD, HH. PPI - SOB/Wheezing with COPD. CXR pending, nebs, steroids per attending. - DUANE. Improved - CAD,HTN, Hyperlipidemia per attending. On plavix at home. Currently on hold PLAN: - ABRAM - Change to Protonix 40mg po BID - Monitor HH - Transfuse as necessary - GI will sign off, please reconsult as needed - Okay to resume plavix on 01/08/17 from GI standpoint - Pt seen and examined by Dr. Alcazar and myself and this note is written on his behalf (Tara Campbell) Plan Patient was seen and examined, agree with above-noted, no sign of active bleeding, we will sign off at this point, (Gypsy Alcazar MD) Tara Campbell Jan 07, 2017 11:05 Gypsy Alcazar MD Jan 07, 2017 17:41
--- NOTE | 2017-01-07 12:10 | RADRPT ---
EXAM DATE/TIME: 01/07/2017 11:34 [facility] COMPARISON: CHEST SINGLE AP, January 04, 2017, 18:33. INDICATIONS : Difficulty breathing MEDICAL HISTORY : Hypertension. SURGICAL HISTORY : CABG. ENCOUNTER: Subsequent ACUITY: 2 days PAIN SCORE: 0/10 LOCATION: chest FINDINGS: Single AP view of the chest demonstrates interval removal of a nasogastric tube. Heart size is within normal limits. Cardiac is noted. Post surgical changes related to prior CABG surgery. The lungs demo nstrate diffuse interstitial prominence but improved aeration as compared to the prior exam. No curre nt evidence of air space consolidation or pneumothorax. Osseous structures demonstrate severe degener ative changes within the bilateral glenohumeral joints. CONCLUSION: Improved lung exam. Diffuse prominence of the interstitium consistent with emphysematous changes. Mildred Murphy MD on January 07, 2017 at 12:07 Board Certified Radiologist. This report was verified electronically.
[2017-01-07] MEDS: RESP: ALBUTEROL 2.5 MG/IPRATROPIUM 0.5 MG NEB (SCH) NEB ×4 (12:24→23:53)
[2017-01-07] MEDS ORDERED: FUROSEMIDE 20 MG/2 ML VIAL IV PUSH ONE (12:45)
[2017-01-07] MEDS: cefTRIAXone INJ 1,000 MG in SODIUM CHLORIDE 0.9% INJ 100 ML IV SCH (18:05)
[2017-01-07] MEDS: AZITHROMYCIN 250 MG TAB PO SCH (18:06)
[2017-01-07] MEDS: PANTOPRAZOLE SOD 40 MG DELAYED RELEASE TAB PO SCH (21:10)
[2017-01-07] MEDS: ATORVASTATIN 40 MG TAB PO SCH (21:11)
[2017-01-07] MEDS: ACETAMINOPHEN 325 MG TAB PO PRN (21:13)
[2017-01-08] VITALS (8 sets, daily range): BP systolic 129–174; BP diastolic 69–75; PULSE 20–84; RESP 20–22; TEMP 95.7–97.9; O2SAT 94–98
[2017-01-08] MEDS: RESP: ALBUTEROL 2.5 MG/IPRATROPIUM 0.5 MG NEB (SCH) NEB ×5 (03:41→20:08)
[2017-01-08] MEDS: methylPREDNISolone SOD SUCC 40 MG/1 ML VIAL IV PUSH SCH ×2 (05:57→16:46)
[2017-01-08] MEDS: ACETAMINOPHEN 325 MG TAB PO PRN ×2 (06:00→20:42)
[2017-01-08] MEDS: guaiFENesin E.R. 600 MG TAB PO SCH (08:03)
[2017-01-08] MEDS: PANTOPRAZOLE SOD 40 MG DELAYED RELEASE TAB PO SCH ×2 (08:03→20:38)
[2017-01-08] MEDS: CLOPIDOGREL 75 MG TAB PO SCH (08:03)
[2017-01-08] MEDS: TRIAMTERENE/HCTZ 37.5 MG/25 MG TAB PO SCH (08:04)
[2017-01-08] MEDS: METOPROLOL TARTRATE 50 MG TAB PO SCH (08:04)
[2017-01-08] MEDS: DOCUSATE SODIUM 50 MG/SENNA 8.6 MG TAB PO SCH ×2 (08:04→20:38)
[2017-01-08] MEDS: SODIUM CHLORIDE 0.9% FLUSH 10 ML FLUSH IV FLUSH SCH ×2 (08:04→20:49)
[2017-01-08] MEDS: BUDESONIDE-FORMOTEROL 80/4.5 MCG INHALER INH SCH ×2 (08:05→22:41)
[2017-01-08 08:24] LABS: HEMATOCRIT 27.5 % (39.0-51.0); MEAN CELL VOLUME 84.7 FL (80.0-100.0); MEAN CORPUSCULAR HEMOGLOBIN 28.7 PG (27.0-34.0); MEAN CORPUSCULAR HGB CONC 33.9 % (32.0-36.0); PLATELET COUNT 171 TH/MM3 (150-450); RED BLOOD COUNT 3.25 MIL/MM3 (4.50-5.90); REVIEW FLAG FINAL; WHITE BLOOD COUNT 13.8 TH/MM3 (4.0-11.0)
[2017-01-08 09:14] LABS: BICARBONATE 27.7 MEQ/L (21.0-32.0); POTASSIUM 3.8 MEQ/L (3.5-5.1)
[2017-01-08] MEDS: AZITHROMYCIN 250 MG TAB PO SCH (16:46)
[2017-01-08] MEDS: cefTRIAXone INJ 1,000 MG in SODIUM CHLORIDE 0.9% INJ 100 ML IV SCH (16:47)
[2017-01-08] MEDS ORDERED: DOXY1CAP74 PO (18:29)
[2017-01-08] MEDS ORDERED: PRED10 PO (18:29)
[2017-01-08] MEDS ORDERED: SYMB80AE INH (18:29)
--- NOTE | 2017-01-08 18:30 | HHI.DCPOC ---
Discharge Care Plan Diagnosis: (1) GI bleed (2) COPD (chronic obstructive pulmonary disease) (3) Constipation Goals to Promote Your Health * To prevent worsening of your condition and complications * To maintain your health at the optimal level Directions to Meet Your Goals Take your medications as prescribed Follow your dietary instruction Follow activity as directed Keep your appointments as scheduled Take your immunizations and boosters as scheduled If your symptoms worsen call your PCP, if no PCP go to Urgent Care Center or Emergency Room Smoking is Dangerous to Your Health. Avoid second hand smoke Call the 24-hour hour crisis hotline for domestic abuse at Sekou Magaña MD R1 Jan 08, 2017 18:30
--- NOTE | 2017-01-08 19:32 | HHI.FPPN ---
Subjective Remarks Seen and examined this morning. Patient states is currently feeling much better. Has had 2 bowel movements since yesterday, darker in color. No nausea, vomiting, hematemesis, fever, chills, chest pain, abdominal pain. COPD is currently "better than normal." Shortness of breath better than baseline. Coughing at baseline. Limited mucus production. (Sekou Magaña MD R1) Objective Vitals Vital Signs Date Time Temp Pulse Resp B/P (MAP) Pulse Ox O2 Delivery O2 Flow Rate FiO2 01/08/17 16:00 95.9 20 20 158/74 (102) 98 01/08/17 12:00 95.7 72 22 174/72 (106) 98 01/08/17 09:55 Nasal Cannula 2.00 01/08/17 08:00 96.8 77 22 167/75 (105) 96 01/08/17 07:50 96 Nasal Cannula 3.00 01/08/17 04:00 96.9 79 20 136/69 (91) 95 01/08/17 00:00 97.3 80 22 129/71 (90) 94 01/07/17 20:40 95 Nasal Cannula 3.00 01/07/17 20:00 98.9 81 22 140/83 (102) 95 I/O 01/07/17 01/07/17 01/07/17 01/08/17 01/08/17 01/08/17 07:00 15:00 23:00 07:00 15:00 23:00 Intake Total 320 ml 1060 ml 320 ml 1600 ml Output Total 175 ml 250 ml 225 ml 600 ml Balance 145 ml 810 ml 95 ml 1000 ml Intake Oral 320 ml 960 ml 320 ml 1600 ml IV Total 100 ml Output Urine Total 175 ml 250 ml 225 ml 600 ml # Voids 2 5 2 3 # Bowel Movements 0 5 1 1 (Sekou Magaña MD R1) Result Diagram: 01/08/1773901/08/17739 Objective Remarks GENERAL: Patient is elderly male, pleasant. SKIN: Warm and dry. Scattered ecchymoses of different areas on extremities, unchanged since admission. HEAD: Atraumatic. Normocephalic. EYES: Pupils equal and round. No scleral icterus. No injection or drainage. ENT: No nasal bleeding or discharge. Mucous membranes pink and moist. NECK: Trachea midline. No JVD. CARDIOVASCULAR: Regular rate and rhythm. Systolic ejection murmur noted, 2/6 intensity. RESPIRATORY: No accessory muscle use. Minor wheezing in bases, unchanged. Breath sounds equal bilaterally. GASTROINTESTINAL: Abdomen soft, mildly distended, nontender. Reduced bowel sounds. Hepatic and splenic margins not palpable. MUSCULOSKELETAL: Extremities without clubbing, cyanosis, or edema. No obvious deformities. NEUROLOGICAL: A+O x 4. No obvious cranial nerve deficits. Motor grossly within normal limits. Strength 5/5 in all extremities today. Normal speech. PSYCHIATRIC: Appropriate mood and affect; insight and judgment normal. (Sekou Magaña MD R1) Date of Insertion: Jan 04, 2017 Date of Removal: Jan 06, 2017 (anticipated) (Sekou Magaña MD R1) A/P Assessment and Plan 81-year-old male with past history of hypertension, hyperlipidemia, GERD who has an active upper GI bleed on nasogastric suction. Asymptomatic. Hemoglobin 13.0 on admission with rapid decrease over first 24hr of hospitalization. S/P EGD 01/05/17 showing Dulce Maria Perez tears without gastritis. Confusion post-EGD 01/05, workup showing mildly elevated ammonia. Pt treated for COPD exacerbation, monitored closely. AMS resolved. To transition to normal med/surg floor. NG tube discontinued, tolerating liquids. Discharge Planning Likely 1-2 days, pending improvement of hemoglobin (Sekou Magaña MD R1) Attending Attestation Patient seen and examined with the resident team. Case reviewed and discussed Agree with plan of care of as discussed with me and documented in the resident note. (Myriam Martinez MD) Problem List: (1) GI bleed ICD Codes: K92.2 - Gastrointestinal hemorrhage, unspecified Status: Acute Plan: Acute blood loss anemia due to upper GI bleed due to Dulce Maria-Perez tears at EG junction. H&H improved after 1U PRBC 01/04. NG tube to LIS with reduced outpt after EGD cauterization. NG tube currently discontinued. * Daily CBC * Avoid red liquids * Call GI for any active GI bleeding * Watchful given steroids initiated for COPD exacerbation - cough possible contributed to Dulce Maria-Perez tears * Hemoglobin Stable * Strict I/Os * Notes chronic "spitting up/ vomiting" Gastric emptying study likely useful outpatient Hospital Course: * Admitted 01/03 with active GI bleed, suspected to be of upper GI source * Hemoglobin 13.0 in ED. negative Hemoccult performed at admission. * Aggressive fluid management, NPO, NG tube * GI consulted, recommendations 01/04: keep NPO for now, EGD in a few weeks * Protonix drip * Transfusion 1U PRBC 01/04 (2) COPD, frequent exacerbations ICD Codes: J44.9 - Chronic obstructive pulmonary disease, unspecified Status: Acute Plan: Patient with AMS on 01/04, possibly related to hypoxemia. ABG reassuring. However, given cough, AMS, history, treatment for COPD exacerbation initiated . He is on O2 at home. Patient reports significant improvement of symptoms since starting steroids. * Currently on recophen, azithromycin for possible CAP * Solumedrol 60mg q6hr 01/04, switched to 40mg q8hr 01/05.. 40mg q12 01/06. Will exercise caution given steroids may worsen gut irritation * Supplemental O2 PRN for goal O2 sat >92% * Duonebs scheduled q4hr, will transition to PRN as indicated * Patient will benefit from long-acting inhaler, will initiate Symbicort * Mucinex added * Sputum culture normal marj * CXR improved (3) Constipation ICD Codes: K59.00 - Constipation, unspecified Plan: Patient reports he has a bowel movement every 6 days typically aided by milk of magnesia. Currently has not had a bowel movement in 6 days and did not produce one after milk of magnesia ingestion. Reports the in-hospital milk of magnesia may have been less than his typical dose. Had recently been NPO with an NG tube for several days. Transitioned to solid foods 01/06 * Consipation currently resolved Hospital course * Chronically constipated with recent extended NPO, possibly nonpathologic * Reports he's been eating his full meals, encouraged to continue * Administer second dose of milk of magnesia * Consider enema if MOM is nonproductive (4) Hypertension ICD Codes: I10 - Essential (primary) hypertension Plan: History of hypertension - BP at goal * Continue home metoprolol 50 mg daily when able to tolerate by mouth * PRN Vasotec * Monitor vital signs (5) Hyperlipidemia ICD Codes: E78.5 - Hyperlipidemia, unspecified Plan: History of hyperlipidemia * Resume home atorvastatin 40 mg daily when able to tolerate by mouth (6) FEN Plan: Fluids * Maintenance fluids @ 110cc/hr Electrolytes * Monitor and correct as needed Nutrition * Liquids DVT prophylaxis: Currently contraindicated due to active bleeding and easy bruising DW Dr. Martinez (Sekou Magaña MD R1) Sekou Magaña MD R1 Jan 08, 2017 19:32 Myriam Martniez MD Jan 08, 2017 20:16
[2017-01-08] MEDS: ATORVASTATIN 40 MG TAB PO SCH (20:38)
[2017-01-09] VITALS: BP 116/65; PULSE 79; RESP 20; TEMP 97.9; O2SAT 94
[2017-01-09 04:00] VITALS: BP 124/61; PULSE 79; RESP 18; TEMP 96.5; O2SAT 96
[2017-01-09] MEDS: RESP: ALBUTEROL 2.5 MG/IPRATROPIUM 0.5 MG NEB (SCH) NEB ×3 (04:00→08:00)
[2017-01-09] MEDS: methylPREDNISolone SOD SUCC 40 MG/1 ML VIAL IV PUSH SCH (04:58)
[2017-01-09 08:00] VITALS: BP 166/76; PULSE 70; RESP 20; TEMP 97.4; O2SAT 95
[2017-01-09] MEDS: CLOPIDOGREL 75 MG TAB PO SCH (08:49)
[2017-01-09] MEDS: guaiFENesin E.R. 600 MG TAB PO SCH (08:49)
[2017-01-09] MEDS: DOCUSATE SODIUM 50 MG/SENNA 8.6 MG TAB PO SCH (08:49)
[2017-01-09] MEDS: TRIAMTERENE/HCTZ 37.5 MG/25 MG TAB PO SCH (08:49)
[2017-01-09] MEDS: METOPROLOL TARTRATE 50 MG TAB PO SCH (08:49)
[2017-01-09] MEDS: BUDESONIDE-FORMOTEROL 80/4.5 MCG INHALER INH SCH (08:49)
[2017-01-09] MEDS: PANTOPRAZOLE SOD 40 MG DELAYED RELEASE TAB PO SCH (08:49)
[2017-01-09] MEDS: SODIUM CHLORIDE 0.9% FLUSH 10 ML FLUSH IV FLUSH SCH (08:50)
--- NOTE | 2017-01-09 11:27 | HHI.FPPN ---
Subjective Remarks Patient seen and examined this morning. Patient states he's been feeling much better. No nausea, vomiting, throwing up blood, abdominal pain, chest pain. States is currently breathing better than baseline. No other complains overnight. Spoke about discharge planning with him, medications, appointments he should keep. He expressed understanding and agreed. (Sekou Magaña MD R1) Objective Vitals Vital Signs Date Time Temp Pulse Resp B/P (MAP) Pulse Ox O2 Delivery O2 Flow Rate FiO2 01/09/17 09:00 95 Nasal Cannula Humidified 01/09/17 08:00 97.4 70 20 166/76 (106) 95 01/09/17 04:00 96.5 79 18 124/61 (82) 96 01/09/17 00:00 97.9 79 20 116/65 (82) 94 01/08/17 20:37 96 Nasal Cannula 2.00 01/08/17 20:10 96 Nasal Cannula 3.00 01/08/17 20:00 97.9 84 20 138/72 (94) 96 01/08/17 20:00 77 01/08/17 16:00 95.9 20 20 158/74 (102) 98 01/08/17 12:00 95.7 72 22 174/72 (106) 98 I/O 01/08/17 01/08/17 01/08/17 01/09/17 01/09/17 01/09/17 07:00 15:00 23:00 07:00 15:00 23:00 Intake Total 320 ml 1600 ml Output Total 225 ml 600 ml Balance 95 ml 1000 ml Intake Oral 320 ml 1600 ml Output Urine Total 225 ml 600 ml # Voids 2 3 # Bowel Movements 1 1 (Sekou Magaña MD R1) Result Diagram: 01/08/17 0740 01/08/17 0740 Objective Remarks GENERAL: Patient is elderly male, pleasant. SKIN: Warm and dry. Scattered ecchymoses of different areas on extremities, unchanged since admission. HEAD: Atraumatic. Normocephalic. EYES: Pupils equal and round. No scleral icterus. No injection or drainage. ENT: No nasal bleeding or discharge. Mucous membranes pink and moist. NECK: Trachea midline. No JVD. CARDIOVASCULAR: Regular rate and rhythm. Systolic ejection murmur noted, 2/6 intensity. RESPIRATORY: No accessory muscle use. Minor wheezing in bases, unchanged. Breath sounds equal bilaterally. GASTROINTESTINAL: Abdomen soft, mildly distended, nontender. Reduced bowel sounds. Hepatic and splenic margins not palpable. MUSCULOSKELETAL: Extremities without clubbing, cyanosis, or edema. No obvious deformities. NEUROLOGICAL: A+O x 4. No obvious cranial nerve deficits. Motor grossly within normal limits. Strength 5/5 in all extremities today. Normal speech. PSYCHIATRIC: Appropriate mood and affect; insight and judgment normal. Procedures Endoscopy with cauterization of Dulce Maria-Perez tear 01/04 (Sekou Magaña MD R1) Date of Insertion: Jan 04, 2017 Date of Removal: Jan 06, 2017 (anticipated) (Sekou Magaña MD R1) A/P Assessment and Plan 81-year-old male with past history of hypertension, hyperlipidemia, GERD who has an active upper GI bleed on nasogastric suction. Asymptomatic. Hemoglobin 13.0 on admission with rapid decrease over first 24hr of hospitalization. S/P EGD 01/05/17 showing Dulce Maria Perez tears without gastritis. Confusion post-EGD 01/05, workup showing mildly elevated ammonia. Pt treated for COPD exacerbation, monitored closely. AMS resolved. To transition to normal med/surg floor. NG tube discontinued, tolerating liquids. Discharge Planning Likely 1-2 days, pending improvement of hemoglobin (Sekou Magaña MD R1) Attending Attestation Patient seen and examined. Case reviewed and discussed Agree with plan of care as discussed with me and documented in the resident note. (Myriam Martinez MD) Problem List: (1) GI bleed ICD Codes: K92.2 - Gastrointestinal hemorrhage, unspecified Status: Acute Plan: Acute blood loss anemia due to upper GI bleed due to Dulce Maria-Perez tears at EG junction. H&H improved after 1U PRBC 01/04. NG tube to LIS with reduced outpt after EGD cauterization. NG tube currently discontinued. * Daily CBC * Avoid red liquids * Call GI for any active GI bleeding * Watchful given steroids initiated for COPD exacerbation - cough possible contributed to Dulce Maria-Perez tears * Hemoglobin Stable * Strict I/Os * Notes chronic "spitting up/ vomiting" Gastric emptying study likely useful outpatient Hospital Course: * Admitted 01/03 with active GI bleed, suspected to be of upper GI source * Hemoglobin 13.0 in ED. negative Hemoccult performed at admission. * Aggressive fluid management, NPO, NG tube * GI consulted, recommendations 01/04: keep NPO for now, EGD in a few weeks * Protonix drip * Transfusion 1U PRBC 01/04 (2) COPD, frequent exacerbations ICD Codes: J44.9 - Chronic obstructive pulmonary disease, unspecified Status: Acute Plan: Patient with AMS on 01/04, possibly related to hypoxemia. ABG reassuring. However, given cough, AMS, history, treatment for COPD exacerbation initiated . He is on O2 at home. Patient reports significant improvement of symptoms since starting steroids. * Currently on recophen, azithromycin for possible CAP * Solumedrol 60mg q6hr 01/04, switched to 40mg q8hr 01/05.. 40mg q12 01/06. Will exercise caution given steroids may worsen gut irritation * Supplemental O2 PRN for goal O2 sat >92% * Duonebs scheduled q4hr, will transition to PRN as indicated * Patient will benefit from long-acting inhaler, will initiate Symbicort * Mucinex added * Sputum culture normal marj * CXR improved (3) Constipation ICD Codes: K59.00 - Constipation, unspecified Plan: Patient reports he has a bowel movement every 6 days typically aided by milk of magnesia. Currently has not had a bowel movement in 6 days and did not produce one after milk of magnesia ingestion. Reports the in-hospital milk of magnesia may have been less than his typical dose. Had recently been NPO with an NG tube for several days. Transitioned to solid foods 01/06 * Consipation currently resolved Hospital course * Chronically constipated with recent extended NPO, possibly nonpathologic * Reports he's been eating his full meals, encouraged to continue * Administer second dose of milk of magnesia * Consider enema if MOM is nonproductive (4) Hypertension ICD Codes: I10 - Essential (primary) hypertension Plan: History of hypertension - BP at goal * Continue home metoprolol 50 mg daily when able to tolerate by mouth * PRN Vasotec * Monitor vital signs (5) Hyperlipidemia ICD Codes: E78.5 - Hyperlipidemia, unspecified Plan: History of hyperlipidemia * Resume home atorvastatin 40 mg daily (6) FEN Plan: Fluids * Maintenance fluids @ 110cc/hr Electrolytes * Monitor and correct as needed Nutrition * Full DVT prophylaxis: Currently contraindicated due to active bleeding and easy bruising DW Dr. Martinez (Sekou Magaña MD R1) Sekou Magaña MD R1 Jan 09, 2017 11:27 Myriam Martinez MD Jan 17, 2017 09:20
--- NOTE | 2017-01-09 12:01 | HHI.DS ---
Sekou Magaña MD R1 01/09/17 1201: Discharge Summary Admission Date Jan 03, 2017 at 18:39 Admitting Diagnosis GI bleed (1) GI bleed Diagnosis: Principal Plan: Acute blood loss anemia due to upper GI bleed due to Dulce Maria-Rader tears at EG junction. H&H improved after 1U PRBC 01/04. NG tube to LIS with reduced outpt after EGD cauterization. NG tube currently discontinued. * Daily CBC * Avoid red liquids * Call GI for any active GI bleeding * Watchful given steroids initiated for COPD exacerbation - cough possible contributed to Dulce Maria-Rader tears * Hemoglobin Stable * Strict I/Os * Notes chronic "spitting up/ vomiting" Gastric emptying study likely useful outpatient Hospital Course: * Admitted 01/03 with active GI bleed, suspected to be of upper GI source * Hemoglobin 13.0 in ED. negative Hemoccult performed at admission. * Aggressive fluid management, NPO, NG tube * GI consulted, recommendations 01/04: keep NPO for now, EGD in a few weeks * Protonix drip * Transfusion 1U PRBC 01/04 ICD Codes: K92.2 - Gastrointestinal hemorrhage, unspecified Status: Acute (2) COPD, frequent exacerbations Diagnosis: Secondary Plan: Patient with AMS on 01/04, possibly related to hypoxemia. ABG reassuring. However, given cough, AMS, history, treatment for COPD exacerbation initiated . He is on O2 at home. Patient reports significant improvement of symptoms since starting steroids. * Currently on recophen, azithromycin for possible CAP * Solumedrol 60mg q6hr 01/04, switched to 40mg q8hr 01/05.. 40mg q12 01/06. Will exercise caution given steroids may worsen gut irritation * Supplemental O2 PRN for goal O2 sat >92% * Duonebs scheduled q4hr, will transition to PRN as indicated * Patient will benefit from long-acting inhaler, will initiate Symbicort * Mucinex added * Sputum culture normal marj * CXR improved ICD Codes: J44.9 - Chronic obstructive pulmonary disease, unspecified Status: Acute (3) Constipation Diagnosis: Secondary Plan: Patient reports he has a bowel movement every 6 days typically aided by milk of magnesia. Currently has not had a bowel movement in 6 days and did not produce one after milk of magnesia ingestion. Reports the in-hospital milk of magnesia may have been less than his typical dose. Had recently been NPO with an NG tube for several days. Transitioned to solid foods 01/06 * Consipation currently resolved Hospital course * Chronically constipated with recent extended NPO, possibly nonpathologic * Reports he's been eating his full meals, encouraged to continue * Administer second dose of milk of magnesia * Consider enema if MOM is nonproductive ICD Codes: K59.00 - Constipation, unspecified (4) Hypertension Diagnosis: Secondary Plan: History of hypertension - BP at goal * Continue home metoprolol 50 mg daily when able to tolerate by mouth * PRN Vasotec * Monitor vital signs ICD Codes: I10 - Essential (primary) hypertension (5) Hyperlipidemia Diagnosis: Secondary Plan: History of hyperlipidemia * Resume home atorvastatin 40 mg daily when able to tolerate by mouth ICD Codes: E78.5 - Hyperlipidemia, unspecified (6) FEN Plan: Fluids * Maintenance fluids @ 110cc/hr Electrolytes * Monitor and correct as needed Nutrition * Liquids DVT prophylaxis: Currently contraindicated due to active bleeding and easy bruising DW Dr. Martinez Procedures Endoscopy with cauterization of Dulce Maria-Rader tear 01/04 Brief History 81 year old male with past history of HTN, GERD, HLD, COPD who presented to the ED for vomiting blood. Patient states he began vomiting yesterday night. There was no blood in his vomit at that time. Over the past day he has vomited "30-40 times." It became a dark brown/red today. Each vomitus was a "small amount". This has never occurred before. He came into the ED at the behest of his granddaughter, who is a nurse. She described the vomitus as "coffee ground emesis". No recent blood from his nose. No lightheadedness, dizziness, dry mouth , headache, palpitations, nausea, abdominal pain. Notes chronic constipation, last bowel movement Sunday after a laxative, did not examine for color. No recent change in urine frequency, volume, color. Patient states he's had no other recent bleeds. Patient states he had a colonoscopy 8-9 months ago which was normal. CBC/BMP: 01/08/17 0740 01/08/17 0740 Significant Findings Laboratory Tests Test 01/06/17 19:10 01/07/17 07:19 01/08/17 07:40 Hemoglobin 8.8 GM/DL (13.0-17.0) 9.7 GM/DL (13.0-17.0) 9.3 GM/DL (13.0-17.0) Hematocrit 26.9 % (39.0-51.0) 28.4 % (39.0-51.0) 27.5 % (39.0-51.0) Potassium Level 3.2 MEQ/L (3.5-5.1) White Blood Count 18.2 TH/MM3 (4.0-11.0) 13.8 TH/MM3 (4.0-11.0) Red Blood Count 3.38 MIL/MM3 (4.50-5.90) 3.25 MIL/MM3 (4.50-5.90) Blood Urea Nitrogen 27 MG/DL (7-18) 25 MG/DL (7-18) Random Glucose 108 MG/DL (74-106) 112 MG/DL (74-106) Calcium Level 7.7 MG/DL (8.5-10.1) 8.0 MG/DL (8.5-10.1) Chloride Level 108 MEQ/L (98-107) Estimat Glomerular Filtration Rate 55 ML/MIN (>89) 51 ML/MIN (>89) Creatinine 1.35 MG/DL (0.60-1.30) PE at Discharge GENERAL: Patient is elderly male, pleasant. SKIN: Warm and dry. Scattered ecchymoses of different areas on extremities, unchanged since admission. HEAD: Atraumatic. Normocephalic. EYES: Pupils equal and round. No scleral icterus. No injection or drainage. ENT: No nasal bleeding or discharge. Mucous membranes pink and moist. NECK: Trachea midline. No JVD. CARDIOVASCULAR: Regular rate and rhythm. Systolic ejection murmur noted, 2/6 intensity. RESPIRATORY: No accessory muscle use. Minor wheezing in bases, unchanged. Breath sounds equal bilaterally. GASTROINTESTINAL: Abdomen soft, mildly distended, nontender. Reduced bowel sounds. Hepatic and splenic margins not palpable. MUSCULOSKELETAL: Extremities without clubbing, cyanosis, or edema. No obvious deformities. NEUROLOGICAL: A+O x 4. No obvious cranial nerve deficits. Motor grossly within normal limits. Strength 5/5 in all extremities today. Normal speech. PSYCHIATRIC: Appropriate mood and affect; insight and judgment normal. Hospital Course Patient was admitted 01/03 for an upper GI Bleed following 2 days of significant vomiting "30-40" times. Fluids were replaced, and EGD was performed 01/04. A dulce maria rader tear was identified and cauterized. Following the procedure the patient presented in an altered state, head CT was negative, likely a post anesthesia lethargy. The patient's anemia was treated with 2 units of PRBCs, 1 on 01/05, one on 01/06. The patient experience a COPD exacerbation while in the hospital. He was placed on oral steroids with a taper to go home with as well as Rocephin and azithromycin. Pt Condition on Discharge: Stable Discharge Disposition: Discharge Home Discharge Instructions DIET: Follow Instructions for: As Tolerated, No Restrictions Activities you can perform: Regular-No Restrictions Follow up Referrals: Gastroenterology - 1 Week with Gypsy Alcazar MD PCP Follow-up - 1 Week Pulmonology - 1 Week New Medications: Doxycycline (Doxycycline) 40 Mg Cap 100 MG PO BID for Infection, #6 CAP 0 Refills Prednisone (Prednisone) 10 Mg Tab 10 MG PO DAILY, #15 TAB 0 Refills Please take 20mg twice daily for 3 days, then 10mg twice daily for 3 days then 10mg daily for 3 days. Budesonide-Formoterol Inh (Symbicort Inh) 80-4.5 Mcg/Act Aero 2 PUFF INH Q12HR for 30 Days, #1 INHALER Continued Medications: Albuterol 8.5 GM Inh (Proair Hfa 8.5 GM Inh) 90 Mcg/Act Aer 2 PUFF INH Q4-6H PRN for SHORTNESS OF BREATH, #1 INHALER 0 Refills 108 mcg/actuation Albuterol Neb (Albuterol Neb) 2.5 Mg/3 Ml Neb 2.5 MG NEB Q4HR NEB PRN for SHORTNESS OF BREATH, #60 NEBULE 0 Refills Atorvastatin (Atorvastatin) 40 Mg Tab 40 MG PO HS for Cholesterol Management, #30 TAB 0 Refills Clopidogrel (Clopidogrel) 75 Mg Tab 75 MG PO DAILY for Blood Clot Prevention, #30 TAB 0 Refills Garlic (Garlic Oil 1000) 1,000 Mg Cap 1 CAP PO DAILY Metoprolol Tartrate (Metoprolol Tartrate) 50 Mg Tab 50 MG PO DAILY, #30 TAB 0 Refills Multivitamin (Men's Multi-Vitamin) 1 Each Tablet 1 TAB PO DAILY Pantoprazole (Pantoprazole) 40 Mg Tab 40 MG PO DAILY for Reflux, #30 TAB 0 Refills Triamterene-Hydrochlorothiazide (Triamterene-Hydrochlorothiazide) 37.5-25 Mg Tab 1 TAB PO DAILY, #30 TAB 0 Refills Myriam Martinez MD 01/17/17 0920: Discharge Summary CBC/BMP: 01/08/17 0740 01/08/17 0740 Discharge Instructions Follow up Referrals: Gastroenterology - 1 Week with Gypsy Alcazar MD PCP Follow-up - 1 Week Pulmonology - 1 Week New Medications: Doxycycline (Doxycycline) 40 Mg Cap 100 MG PO BID for Infection, #6 CAP 0 Refills Prednisone (Prednisone) 10 Mg Tab 10 MG PO DAILY, #15 TAB 0 Refills Please take 20mg twice daily for 3 days, then 10mg twice daily for 3 days then 10mg daily for 3 days. Budesonide-Formoterol Inh (Symbicort Inh) 80-4.5 Mcg/Act Aero 2 PUFF INH Q12HR for 30 Days, #1 INHALER Continued Medications: Albuterol 8.5 GM Inh (Proair Hfa 8.5 GM Inh) 90 Mcg/Act Aer 2 PUFF INH Q4-6H PRN for SHORTNESS OF BREATH, #1 INHALER 0 Refills 108 mcg/actuation Albuterol Neb (Albuterol Neb) 2.5 Mg/3 Ml Neb 2.5 MG NEB Q4HR NEB PRN for SHORTNESS OF BREATH, #60 NEBULE 0 Refills Atorvastatin (Atorvastatin) 40 Mg Tab 40 MG PO HS for Cholesterol Management, #30 TAB 0 Refills Clopidogrel (Clopidogrel) 75 Mg Tab 75 MG PO DAILY for Blood Clot Prevention, #30 TAB 0 Refills Garlic (Garlic Oil 1000) 1,000 Mg Cap 1 CAP PO DAILY Metoprolol Tartrate (Metoprolol Tartrate) 50 Mg Tab 50 MG PO DAILY, #30 TAB 0 Refills Multivitamin (Men's Multi-Vitamin) 1 Each Tablet 1 TAB PO DAILY Pantoprazole (Pantoprazole) 40 Mg Tab 40 MG PO DAILY for Reflux, #30 TAB 0 Refills Triamterene-Hydrochlorothiazide (Triamterene-Hydrochlorothiazide) 37.5-25 Mg Tab 1 TAB PO DAILY, #30 TAB 0 Refills Faille,Betito MD R1 Jan 09, 2017 12:01 Myriam Martinez MD Jan 17, 2017 09:20
== END 2017-01-09 09:22 | disposition home or self-care (01) | DRG 369 ==
LOC: NEPE 17:09 → NEDA 18:39 → NEDH 22:39 → HIMN 01-04 00:50 → N07A 01-06 16:32
PROVIDERS: ADMIT Family Medicine; ATTEND Family Medicine
PROC: 0D9670Z Drainage of Stomach with Drainage Device, Via Natural or Artificial Opening (ICD-10-PCS; 2017-01-03)
PROC: 0W3P8ZZ Control Bleeding in Gastrointestinal Tract, Via Natural or Artificial Opening Endoscopic (ICD-10-PCS; principal; 2017-01-04 13:05)
PROC: 30233N1 Transfusion of Nonautologous Red Blood Cells into Peripheral Vein, Percutaneous Approach (ICD-10-PCS; 2017-01-05)
DX: K22.6 Gastro-esophageal laceration-hemorrhage syndrome (principal); D62 Acute posthemorrhagic anemia; N17.9 Acute kidney failure, unspecified; J44.1 Chronic obstructive pulmonary disease with (acute) exacerbation; Z99.81 Dependence on supplemental oxygen; E86.0 Dehydration; E78.5 Hyperlipidemia, unspecified; Z96.641 Presence of right artificial hip joint; K21.0 Gastro-esophageal reflux disease with esophagitis; R41.82 Altered mental status, unspecified; I25.10 Atherosclerotic heart disease of native coronary artery without angina pectoris; K59.09 Other constipation; N18.9 Chronic kidney disease, unspecified; I12.9 Hypertensive chronic kidney disease with stage 1 through stage 4 chronic kidney disease, or unspecified chronic kidney disease; Z87.891 Personal history of nicotine dependence; Z95.2 Presence of prosthetic heart valve; Z78.1 Physical restraint status; Z95.1 Presence of aortocoronary bypass graft; Z79.02 Long term (current) use of antithrombotics/antiplatelets
CPT/HCPCS: 36430; 36600; 43753; 70450; 71010; 74020; 80048; 80053; 82140; 82805; 83690; 83735; 84100; 84132; 85007; 85014; 85018; 85025; 85027; 85610; 85730; 86850; 86900; 86901; 86920; 87070; 87205; 87641; 93005; 94640; 94664; 96361; 96374; 96375; C9113; J0171; J0696; J1940; J2270; J2370; J2405; J2550; J2920; J2930; J7030; J7040; J7050; P9016